=== PATIENT | female | born 1930 | race Caucasian/White ===

== ENCOUNTER 2017-03-17 13:19 | Inpatient (IN) | payer MEDICARE ==
[~2017-03-17] VITALS: Ht 162.6 cm; Wt 51.0 kg
[~2017-03-17 13:19] MED LIST changes: -AMOX-556 PO
[2017-03-17] MEDS ORDERED: NS(*) 0.9% 1000 ML BAG 1,000 ML IV ONE (13:23)
[2017-03-17] MEDS ORDERED: ONDANSETRON 4 MG/2 ML VIAL IVP ONE (13:25)
--- NOTE | 2017-03-17 13:26 | ER Report ---
History and Physical Time Seen By MD: 13:25 HPI/ROS CHIEF COMPLAINT: Vomiting diarrhea dehydration HISTORY OF PRESENT ILLNESS: 86 show female history of tongue CA status post resection has been having diarrhea and vomiting the last couple days since she vomited was last evening some mild distention of her abdomen patient states she feels very dehydrated and unable to hold fluids down and by mouth patient denies any chest pain shortness of breath fever chills or additional complaints REVIEW OF SYSTEMS: Respiratory: No cough, no dyspnea. Cardiovascular: No chest pain, no palpitations. Gastrointestinal: Vomiting diarrhea dehydration abdominal distention without pain Musculoskeletal: No back pain. Remainder of the 14 system rev: Yes Allergies: Coded Allergies: codeine (Verified Allergy, Unknown, 03/17/17) Home Meds Reported Medications Levothyroxine Sodium (Levoxyl) 125 Mcg Tablet, 125 MCG PO QDAY 05/11/11 Reviewed Nurses Notes: Yes Old Medical Records Reviewed: Yes Hx Smoking: No Smoking Status: Never Smoker Exposure to Second Hand Smoke?: No Hx Substance Use Disorder: No Hx Alcohol Use: No Constitutional Vital Sign - Last 24 Hours 03/17/17 03/17/17 03/17/17 03/17/17 13:19 13:24 13:30 13:34 Temp 98.1 Pulse ??? 80 77 Resp 36 18 21 B/P (MAP) 136/102 (113) 136/102 111/70 (84) Pulse Ox 92 93 O2 Delivery Room Air 03/17/17 03/17/17 03/17/17 03/17/17 13:39 13:54 14:00 14:09 Pulse 72 ? Resp 20 B/P (MAP) ???/??? (1665) Pulse Ox 90 03/17/17 03/17/17 03/17/17 03/17/17 14:24 14:30 14:42 14:54 Pulse 74 70 B/P (MAP) 108/54 (72) 108/52 (70) Pulse Ox 95 94 03/17/17 15:00 B/P (MAP) 111/51 (71) Intake and Output 03/17/17 03/17/17 03/18/17 15:00 23:00 07:00 Output Total 125 ml Balance -125 ml Physical Exam General Appearance: [The patient is alert, has no immediate need for airway protection and no current signs of toxicity.] Obvious tongue resection Eyes: Pupils equal and round no injection. Respiratory: Chest is non tender, lungs are clear to auscultation. Cardiac: regular rate and rhythm [ ] Gastrointestinal: Abdomen is soft mildly tender with mild distention hyperactive bowel sounds Musculoskeletal: Neck: Neck is supple and non tender. Extremities have full range of motion and are non tender. Skin: No rashes or lesions. Tenting of the skin lock of loss of turgor DIFFERENTIAL DIAGNOSIS: After history and physical exam differential diagnosis was considered for dehydration antritis gastroenteritis small bowel obstruction Medical Decision Making Data Points Result Diagram: 03/17/17 1313 03/17/17 1313 Laboratory Hematology Test 03/17/17 13:13 03/17/17 14:45 03/17/17 14:53 Red Blood Count 4.69 M/uL (4.17-5.56) Mean Corpuscular Volume 94.6 fL (80.0-96.0) Mean Corpuscular Hemoglobin 32.1 pg (26.0-33.0) Mean Corpuscular Hemoglobin Concent 33.9 g/dL (32.0-36.0) Red Cell Distribution Width 13.4 % (11.5-14.5) Mean Platelet Volume 9.9 fL (7.2-11.1) Neutrophils (%) (Auto) 90.5 % (39.4-72.5) Lymphocytes (%) (Auto) 4.5 % (17.6-49.6) Monocytes (%) (Auto) 4.6 % (4.1-12.4) Eosinophils (%) (Auto) 0.3 % (0.4-6.7) Basophils (%) (Auto) 0.1 % (0.3-1.4) Nucleated RBC Relative Count (auto) 0.0 /100WBC Neutrophils # (Auto) 14.8 K/uL (2.0-7.4) Lymphocytes # (Auto) 0.7 K/uL (1.3-3.6) Monocytes # (Auto) 0.8 K/uL (0.3-1.0) Eosinophils # (Auto) 0.0 K/uL (0.0-0.5) Basophils # (Auto) 0.0 K/uL (0.0-0.1) Nucleated RBC Absolute Count (auto) 0.00 K/uL Prothrombin Time 13.7 seconds (12.0-14.4) Prothromb Time International Ratio 1.04 Activated Partial Thromboplast Time 32 seconds (23-35) Sodium Level 136 mmol/L (137-145) Potassium Level 3.0 mmol/L (3.5-5.0) Chloride Level 101 mmol/L (98-107) Carbon Dioxide Level 22 mmol/L (22-31) Blood Urea Nitrogen 61 mg/dl (7-18) Creatinine 1.60 mg/dl (0.52-1.04) Glomerular Filtration Rate Calc 30.6 Random Glucose 122 mg/dl (75-110) Calcium Level 8.9 mg/dl (8.4-10.2) Total Bilirubin 0.9 mg/dl (0.2-1.3) Aspartate Amino Transf (AST/SGOT) 54 U/L (0-35) Alanine Aminotransferase (ALT/SGPT) 42 U/L (0-56) Alkaline Phosphatase 113 U/L (0-126) Total Protein 7.6 gm/dl (6.3-8.2) Albumin 3.9 g/dl (3.5-5.0) Lipase 73 U/L (23-300) Serum Alcohol < 10 mg/dl Stool Occult Blood (IFOB) Negative (NEGATIVE) Stool Leukocytes, Qualitative Positive Urine Color Yellow Urine Clarity Clear Urine pH 5.0 pH (4.8-9.5) Urine Specific Avery 1.019 Urine Protein Negative mg/dL (NEGATIVE) Urine Glucose (UA) Negative mg/dL (NEGATIVE) Urine Ketones Negative mg/dL (NEGATIVE) Urine Blood Negative (NEGATIVE) Urine Nitrite Negative (NEGATIVE) Urine Bilirubin Negative (NEGATIVE) Urine Urobilinogen Negative mg/dL (0.2-1.9) Urine Leukocyte Esterase Negative (NEGATIVE) Urine RBC <1 /HPF (0-2/HPF) Urine WBC 1 /HPF (0-5/HPF) Urine Squamous Epithelial Cells Few /LPF (NONE-FEW) Urine Bacteria Negative /HPF (NONE-FEW) Urine Hyaline Casts Few /LPF (NONE-FEW) Urine Granular Casts Few /LPF (NONE) Urine Mucus None /HPF (NONE-FEW) Chemistry Test 03/17/17 13:13 03/17/17 14:45 03/17/17 14:53 White Blood Count 16.4 k/uL (4.5-11.0) Red Blood Count 4.69 M/uL (4.17-5.56) Hemoglobin 15.0 g/dL (12.0-16.0) Hematocrit 44.4 % (34.0-47.0) Mean Corpuscular Volume 94.6 fL (80.0-96.0) Mean Corpuscular Hemoglobin 32.1 pg (26.0-33.0) Mean Corpuscular Hemoglobin Concent 33.9 g/dL (32.0-36.0) Red Cell Distribution Width 13.4 % (11.5-14.5) Platelet Count 199 K/uL (150-450) Mean Platelet Volume 9.9 fL (7.2-11.1) Neutrophils (%) (Auto) 90.5 % (39.4-72.5) Lymphocytes (%) (Auto) 4.5 % (17.6-49.6) Monocytes (%) (Auto) 4.6 % (4.1-12.4) Eosinophils (%) (Auto) 0.3 % (0.4-6.7) Basophils (%) (Auto) 0.1 % (0.3-1.4) Nucleated RBC Relative Count (auto) 0.0 /100WBC Neutrophils # (Auto) 14.8 K/uL (2.0-7.4) Lymphocytes # (Auto) 0.7 K/uL (1.3-3.6) Monocytes # (Auto) 0.8 K/uL (0.3-1.0) Eosinophils # (Auto) 0.0 K/uL (0.0-0.5) Basophils # (Auto) 0.0 K/uL (0.0-0.1) Nucleated RBC Absolute Count (auto) 0.00 K/uL Prothrombin Time 13.7 seconds (12.0-14.4) Prothromb Time International Ratio 1.04 Activated Partial Thromboplast Time 32 seconds (23-35) Glomerular Filtration Rate Calc 30.6 Calcium Level 8.9 mg/dl (8.4-10.2) Total Bilirubin 0.9 mg/dl (0.2-1.3) Aspartate Amino Transf (AST/SGOT) 54 U/L (0-35) Alanine Aminotransferase (ALT/SGPT) 42 U/L (0-56) Alkaline Phosphatase 113 U/L (0-126) Total Protein 7.6 gm/dl (6.3-8.2) Albumin 3.9 g/dl (3.5-5.0) Lipase 73 U/L (23-300) Serum Alcohol < 10 mg/dl Stool Occult Blood (IFOB) Negative (NEGATIVE) Stool Leukocytes, Qualitative Positive Urine Color Yellow Urine Clarity Clear Urine pH 5.0 pH (4.8-9.5) Urine Specific Avery 1.019 Urine Protein Negative mg/dL (NEGATIVE) Urine Glucose (UA) Negative mg/dL (NEGATIVE) Urine Ketones Negative mg/dL (NEGATIVE) Urine Blood Negative (NEGATIVE) Urine Nitrite Negative (NEGATIVE) Urine Bilirubin Negative (NEGATIVE) Urine Urobilinogen Negative mg/dL (0.2-1.9) Urine Leukocyte Esterase Negative (NEGATIVE) Urine RBC <1 /HPF (0-2/HPF) Urine WBC 1 /HPF (0-5/HPF) Urine Squamous Epithelial Cells Few /LPF (NONE-FEW) Urine Bacteria Negative /HPF (NONE-FEW) Urine Hyaline Casts Few /LPF (NONE-FEW) Urine Granular Casts Few /LPF (NONE) Urine Mucus None /HPF (NONE-FEW) Coagulation Test 03/17/17 13:13 Prothrombin Time 13.7 seconds Prothromb Time International Ratio 1.04 Activated Partial Thromboplast Time 32 seconds Toxicology Test 03/17/17 13:13 Serum Alcohol < 10 mg/dl Urinalysis Test 03/17/17 14:53 Urine Color Yellow Urine Clarity Clear Urine pH 5.0 pH (4.8-9.5) Urine Specific Avery 1.019 Urine Protein Negative mg/dL (NEGATIVE) Urine Glucose (UA) Negative mg/dL (NEGATIVE) Urine Ketones Negative mg/dL (NEGATIVE) Urine Blood Negative (NEGATIVE) Urine Nitrite Negative (NEGATIVE) Urine Bilirubin Negative (NEGATIVE) Urine Urobilinogen Negative mg/dL (0.2-1.9) Urine Leukocyte Esterase Negative (NEGATIVE) Urine RBC <1 /HPF (0-2/HPF) Urine WBC 1 /HPF (0-5/HPF) Urine Squamous Epithelial Cells Few /LPF (NONE-FEW) Urine Bacteria Negative /HPF (NONE-FEW) Urine Hyaline Casts Few /LPF (NONE-FEW) Urine Granular Casts Few /LPF (NONE) Urine Mucus None /HPF (NONE-FEW) Microbiology Microbiology Date/Time Source Procedure Growth Status 03/17/17 14:45 Stool Gram Stain - Final Resulted 03/17/17 14:45 Stool Stool Culture Pending Resulted ED Course/Re-evaluation ED Course ED clinical course medical decision making a 6-year-old female who presented with gastric distention nausea vomiting and dehydration CT scan doesn't demonstrate a clear and obvious ileus with no transition point indicating small bowel with mild to moderate distention of the cecum and ascending colon also shows infiltrative changes in both the middle left and inferior lingual lobes this was treated with antibiotics patient be admitted for dehydration and pneumonia with surgical consult Decision to Disposition Date: Mar 17, 2017 Decision to Disposition Time: 14:57 Depart Departure Latest Vital Signs Vital Signs Date Time Temp Pulse Resp B/P (MAP) Pulse Ox O2 Delivery O2 Flow Rate FiO2 03/17/17 15:00 111/51 (71) 03/17/17 14:54 70 94 03/17/17 13:39 20 03/17/17 13:24 98.1 Room Air Impression: Primary Impression: Ileus Condition: Improved Disposition: Admitted from ER Referrals: BOOKER ZAMAN MD (PCP) GIOVANY PERLA MD Mar 17, 2017 13:26
[2017-03-17 13:34] LABS: PLATELET COUNT, AUTOMATED 199 K/uL (150-450)
[2017-03-17 13:39] LABS: INR 1.04
[2017-03-17] MEDS ORDERED: IOPAMIDOL 76% 75 ML INFUS BTL 0 ML ONE (13:43)
[2017-03-17] MEDS ORDERED: NS 0.9% 50 ML VIAL 0 ML ONE (13:43)
--- NOTE | 2017-03-17 14:11 | RADIOLOGY IMAGING REPORT ---
FACILITY: [facility] - [place] PATIENT NAME: Deny Mckenzie : 1930 MR: [id number] V: [id number] EXAM DATE: ORDERING PHYSICIAN: GIOVANY PERLA TECHNOLOGIST: [facility] Patient: Deny Mckenzie : 1930 Visit/Account:[id number] Date of Sevice: 03/17/2017 Exam type: CHEST PA AND LAT History: Pain Comparison: July 31, 2016. Findings: The lungs are free of acute effusions, infiltrates or edema. There is no evidence of a pneumothorax or pneumomediastinum. The cardiac silhouette is normal in size. There are postsurgical changes from a left mastectomy. There is an S-shaped scoliosis of the thoracolumbar spine IMPRESSION: 1. No acute heart pulmonary process is seen Report Dictated By: Yumi Lozano MD at 03/17/2017 2:06 PM Report E-Signed By: Yumi Lozano MD at 03/17/2017 2:07 PM WSN:IRIS
--- NOTE | 2017-03-17 14:40 | RADIOLOGY IMAGING REPORT ---
FACILITY: [facility] - [place] PATIENT NAME: Deny Mckenzie : 1930 MR: [id number] V: [id number] EXAM DATE: ORDERING PHYSICIAN: GIOVANY PERLA TECHNOLOGIST: Location: [facility] [place] Patient: Deny Mckenzie : 1930 Visit/Account:[id number] Date of Sevice: 03/17/2017 ABDOMEN/PELVIS W/O CONTRAST HISTORY: Vomiting and diarrhea since Wednesday night, rule out SBO TECHNIQUE: Axial images acquired through the abdomen/pelvis. Coronal and sagittal reformatting also performed. No IV contrast administered. Dose Lowering Technique One of the following dose optimization techniques was utilized in the performance of this exam: Autom ated exposure control; adjustment of the mA and/or kV according to the patient's size; or use of an i terative reconstruction technique. Specific details can be referenced in the facility's radiology C T exam operational policy. COMPARISON: December 27, 2013 FINDINGS: Visualized lung bases: There are focal patchy areas of airspace consolidation in the inferomedial rig ht middle lobe inferolateral left lower lobe and inferior lingula not present previously. There Is a 5 mm noncalcified nodule in the right lower lobe 4 mm nodule inferior right middle lobe a nd additional 5 mm nodule posterior right lower lobe although appears stable when compared to the damien or study Hepatobiliary: The gallbladder is not identified and is presumably removed. Spleen: Negative. Adrenals: Negative. Pancreas: Pancreas is severely atrophic Kidneys ureters and bladder: Negative. Genitalia: Uterus is not identified GI: The stomach is moderately distended with fluid and particulate material. Several loops of minim ally prominent fluid-filled small bowel in the upper abdomen. The distal small bowel is decompressed . The cecum is markedly distended with fluid and particulate material and measures approximately 8.1 cm in diameter. The ascending colon is moderately distended with fluid measuring up to 4.7 cm in di ameter there is moderate gaseous distention of the transverse colon. Left-sided colon does not appea r distended. A transitional point is not seen Vessels/spaces/nodes: There are moderate vascular calcifications throughout the abdomen and pelvis. Bones/soft tissues: There is a levoconvex scoliosis of the lumbar spine with spondylotic changes. T here are mild to moderate degenerative changes of both hip joints Additional findings: None pertinent. IMPRESSION: The cecum is markedly distended with fluid measuring up to 8.1 cm in diameter. Descending colon is m oderately distended with fluid measuring up to 4.7 cm in diameter. Also noted is moderate gaseous di stention of the colon although the left-sided colon does not appear distended. A definite transition al point is not seen. The stomach is moderately distended with fluid and particulate material and there are several loops o f minimally prominent fluid-filled small bowel in the upper abdomen. This does not appear to represe nt a small bowel obstruction. Changes could possibly be related to an ileus however clinical correla tion needed (correlation with presence or absence of bowel sounds) There are patchy areas of airspace consolidation in the inferomedial right middle lobe, inferolateral left lower lobe and inferior lingula which may represent atelectasis or an acute infectious/inflamma tory process. Report Dictated By: Yumi Lozano MD at 03/17/2017 2:19 PM Report E-Signed By: Yumi Lozano MD at 03/17/2017 2:36 PM ARMIDAN:IRIS
[2017-03-17] MEDS ORDERED: PIPERACILLIN/TAZO*3.375GM VIAL 3.375 GM in NS(*) 0.9% 100 ML ADDVANT BAG 100 ML IVPB ONE (14:45)
--- NOTE | 2017-03-17 16:23 | RADIOLOGY IMAGING REPORT ---
FACILITY: [facility] - [place] PATIENT NAME: Deny Mckenzie : 1930 MR: [id number] V: [id number] EXAM DATE: ORDERING PHYSICIAN: GIOVANY PERLA TECHNOLOGIST: Location: [facility] Patient: Deny Mckenzie : 1930 Visit/Account:[id number] Date of Sevice: 03/17/2017 CHEST W/O CONTRAST History: possible infiltrate TECHNIQUE: Contiguous axial images were performed through the chest to the level of the adrenal gla nds. No IV contrast was administered. Coronal and sagittal reformatting was also performed. Dose Lowe ring Technique One of the following dose optimization techniques was utilized in the performance of this exam: Autom ated exposure control; adjustment of the mA and/or kV according to the patient's size; or use of an i terative reconstruction technique. Specific details can be referenced in the facility's radiology C T exam operational policy. COMPARISON STUDIES: CTA chest July 31, 2016. Lungs / Pleura: Mild biapical pleural parenchymal scarring remains unchanged.. Previously noted 4 mm noncalcified pulmonary nodule right middle lobe has remained stable best seen on image 51.. 4 mm noncalcified pulmonary nodule right middle lobe best seen on image 56 also remains stable. 3 mm nonc alcified right middle lobe pulmonary nodule best seen on image 71 is also remained stable 5 mm pulmonary nodule inferior aspect right lower lobe best seen on image 73 is also remained stable. The 2-3 mm noncalcified pulmonary nodules anterior aspect of the right lower lobe best seen on imag es 56 and 57 are relatively unchanged when allowing for the patient motion on the prior study There is now patchy airspace consolidation in the inferior medial right middle lobe, medial right low er lobe, inferior lingula and posterior lateral left lower lobe which may represent atelectasis and o r infiltrates Mediastinum/nodes: Mediastinal structures not ideally evaluated due to lack of intravenous contrast although no gross evidence of pathologic-appearing mediastinal adenopathy Heart and vessels: The coronary artery vascular calcifications and calcination occasions at the aort ic root Musculoskeletal / Body wall: Spondylotic changes of the thoracic spine. There are postsurgical lucy nges from a left mastectomy Upper abdomen: Visualized abdominal viscera negative. IMPRESSION: There are multiple bilateral pulmonary nodules measuring up to 5 mm all appear stable when compared t o the prior study For multiple nodules measuring less than 6 mm, in a low risk patient (minimal or ab sent smoking history, no history of malignancy), no routine followup is recommended. In a high risk p atient (smoking or malignancy history), optional 12 month followup can be obtained. There is now patchy airspace consolidation in the inferior medial right middle lobe, medial right low er lobe, inferior lingula and posterior lateral left lower lobe which may represent areas of atelecta sis and or infiltrate. Short-term interval follow-up recommended Report Dictated By: Yumi Lozano MD at 03/17/2017 4:01 PM Report E-Signed By: Yumi Lozano MD at 03/17/2017 4:18 PM ARMIDAN:IRIS
[2017-03-17 16:52] VITALS: BP 119/38
--- NOTE | 2017-03-17 17:15 | History & Physical ---
History of Present Illness Chief Complaint Weak History of Present Illness 86yo female with PMHx significant for tongue cancer s/p glossectomy, breast cancer s/p left mastectomy, hypothyroidism. She reports onset of nausea with vomiting 3 days ago. She has not been able to keep much of her dietary supplement (Resource) down during this time. She has had some loose stools as well. She has noted some coughing spells on occasion. No obvious fevers or chills. Some abdominal discomfort at times. No urinary symptoms. She was evaluated in the ER and found to be dehydrated with some acute renal insufficiency as well as possible ileus and right-sided pneumonia. She was recommended for admission. 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 Hx Smoking: No Smoking Status: Never Smoker Exposure to Second Hand Smoke?: No Hx Alcohol Use: No Hx Substance Use Disorder: No Review of Systems Constitutional: No Fever, No Chills, No Night Sweats Neurological: Weakness, No Syncope Eyes: No Vision Change, No Loss of Vision Cardiovascular: No Chest Pain, No Palpitations Respiratory: Shortness of Breath, Cough Gastrointestinal: Nausea, Vomiting, Diarrhea, No Hematemesis, No Hematochezia, No Melena, Abdominal Pain Genitourinary: No Dysuria, No Hematuria Exam Vital Signs Vital Signs Date Time Temp Pulse Resp B/P (MAP) Pulse Ox O2 Delivery O2 Flow Rate FiO2 03/17/17 16:52 92 03/17/17 16:52 98.3 74 16 119/38 (65) Room Air General Appearance: Alert, Awake Eyes: PERRLA ENT: Other (s/p glossectomy) Neck: Other (skin is tight/radiation type changes/no obvious masses noted) Cardiovascular: No Edema, Other (Regular no obvious murmur) Respiratory: Other (Rales and scattered rhonchi right mid-base/left is fairly clear) Chest: No Tenderness, Other (s/p left mastectomy) GI: Abd Soft and Non-Tender (Healed surgical scars and LUQ PEG tube scar) : No CVA Tenderness Extremities: Warm, Perfused Integumentary: Other (skin graft harvest site left forearm) Psych: Alert & Oriented X3 Medical Decision Making Data Points Result Diagram: 03/17/17 1313 03/17/17 1313 Assessment and Plan Problems: (1) Pneumonia Status: Acute Assessment & Plan: It appears she has the right-sided pneumonia. Would have to be concerned it may be an aspiration pneumonia. Will place on IV Zosyn and Levaquin. Will adjust dose for renal function. Cultures of blood have been obtained. Will have Speech/Swallowing see her. We did discuss feeding tube placement if needed and she stated she did not want to pursue it. (2) Ileus Status: Acute Assessment & Plan: CT scan shows possible ileus/obstruction. Will discuss with Dr. Gragner regarding further evaluation/treatment. 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 She has been taking her nutrition via supplement three times a day, but sounds like she could potentially be aspirating. Will have ST see. (4) Acute renal failure Status: Acute Assessment & Plan: Most likely due to dehydration/poor intake. Will give generous IV fluids. Watch labs/UOP/Ins and outs. Venous Thromboembolism Antithrombotics Is Pt On Any Antithrombotics?: Yes Exam Sepsis Risk: No Definite Risk YOEL ENRIQUEZ MD Mar 17, 2017 17:15
[2017-03-17] MEDS ORDERED: PIPERACILLIN/TAZO SOD* 2.25 GM 2.25 GM in NS(*) 0.9% 100 ML ADDVANT BAG 100 ML IVPB SCH (18:00)
--- NOTE | 2017-03-17 18:52 | General Surgery Consultation ---
History of Present Illness Requesting Physician dr hoffman Reason for Consult colon dilatation Chief Complaint nausea and vomiting History of Present Illness 86 yo female with a glossectomy who developed chest pain and shortness of breath. she has had a 2 day history of nausea and vomiting and left upper quadrant pain. she has had diarrhea. last week her bowels were working normally. she had a colonoscopy that was normal 2 years ago. she was seen in ed. ct of chest suggests pneumonia. ct of abdomen reveals dilated stomach, small bowel, and colon. the cecum is 8 cm and full of stool. the left colon is decompressed but no transition point identified. History Unable To Obtain Past Medical: tonsillectomy, appendectomy, cholecystectomy, left mastectomy, hysterectomy, glossectomy. colonoscopy Problems: Home Meds Reported Medications Levothyroxine Sodium (Levoxyl) 125 Mcg Tablet, 125 MCG PO QDAY 05/11/11 Allergies: Coded Allergies: codeine (Verified Allergy, Unknown, 03/17/17) Exam Vital Signs Vital Signs Date Time Temp Pulse Resp B/P (MAP) Pulse Ox O2 Delivery O2 Flow Rate FiO2 03/17/17 16:52 92 03/17/17 16:52 98.3 74 16 119/38 (65) Room Air General Appearance: Alert, Awake, No Acute Distress GI: Abd Soft and Non-Tender (she is not dread distended. i can palpate quite deeply without pain.) Medical Decision Making Data Points Result Diagram: 03/17/17 1313 03/17/17 1313 Assessment and Plan Problems: (1) Abdominal pain Assessment & Plan: most likely has an ileus. will do a gastrograffin enema in the am to determine if an obstruction exists. Copies to: ANAID STEWART MD Venous Thromboembolism Antithrombotics Is Pt On Any Antithrombotics?: Yes ANAID STEWART MD Mar 17, 2017 18:52
[2017-03-17 19:24] VITALS: BP 100/49
[2017-03-17] MEDS ORDERED: LEVOFLOXACIN/D5W*500 MG/100 ML 100 ML IVPB ONE (19:30)
[2017-03-17 23:02] VITALS: BP 110/48
[2017-03-18] MEDS: PIPERACILLIN/TAZO SOD* 2.25 GM 2.25 GM in NS(*) 0.9% 100 ML ADDVANT BAG 100 ML IVPB SCH ×2 (00:18→06:11)
[2017-03-18 03:03] VITALS: BP 101/44
--- NOTE | 2017-03-18 05:53 | General Surgery Progress Note ---
Subjective Progress Notes Subjective no complaints of abdominal pain or nausea, slept ok Physical Exam Vital Signs Date Time Temp Pulse Resp B/P (MAP) Pulse Ox O2 Delivery O2 Flow Rate FiO2 03/18/17 03:03 97.6 68 16 101/44 (63) 91 Room Air General Appearance: Alert, Awake, No Acute Distress GI: Soft and Non-Tender (had bm) Result Diagram: 03/17/17 1313 03/17/17 1313 Assessment and Plan Problems: (1) Abdominal pain Assessment & Plan: most likely has an ileus. will do a gastrograffin enema in the am to determine if an obstruction exists. 03/18/17 gastrograffin enema today to evaluate colon Exam Sepsis Risk: No Definite Risk ANAID STEWART MD Mar 18, 2017 05:53
[2017-03-18] MEDS: LEVOTHYROXINE SOD 0.125 MG TAB PO SCH (06:00)
[2017-03-18 06:15] LABS: PLATELET COUNT, AUTOMATED 145 K/uL (150-450)
[2017-03-18] MEDS: ENOXAPARIN 40 MG/0.4ML SYR SC SCH (08:50)
[2017-03-18] MEDS ORDERED: KCL/NS* 20 MEQ/1000 ML PREMIX 1,000 ML IV PRN (10:45)
[2017-03-18 10:50] VITALS: Ht 162.6 cm; Wt 51.0 kg
[2017-03-18 11:15] VITALS: BP 111/50
[2017-03-18] MEDS ORDERED: DIATRIZOATE MEGL/DIATRIZOA SOD 120 ML SOLN PO ONE ×2 (13:37→13:43)
[2017-03-18] MEDS ORDERED: DIATRIZOATE MEGL/DIATRIZOA SOD 367 MG/ML SOLN ONE (13:41)
[2017-03-18] MEDS: AMPICILLIN/SULBACT (*) 3 GM VL 3 GM in NS(*) 0.9% 100 ML BAG 100 ML IVPB SCH ×2 (15:26→21:16)
[2017-03-18 15:29] VITALS: BP 130/52
[2017-03-18] MEDS ORDERED: KCL/NS* 20 MEQ/1000 ML PREMIX 1,000 ML IV SCH (16:52)
--- NOTE | 2017-03-18 16:54 | General Surgery Progress Note ---
Subjective Progress Notes Subjective no pain, hungry Physical Exam Vital Signs Date Time Temp Pulse Resp B/P (MAP) Pulse Ox O2 Delivery O2 Flow Rate FiO2 03/18/17 15:29 97.5 63 16 130/52 (78) 94 Room Air Intake and Output 03/19/17 07:00 # Voids 1 # Bowel Movements 1 GI: Other (multiple bms) Result Diagram: 03/18/17 0541 03/18/17 0541 Assessment and Plan Problems: (1) Abdominal pain Assessment & Plan: most likely has an ileus. will do a gastrograffin enema in the am to determine if an obstruction exists. 03/18/17 gastrograffin enema today to evaluate colon 03/18/17 enema reveals no obstruction. resume diet. Exam Sepsis Risk: No Definite Risk ANAID STEWART MD Mar 18, 2017 16:54
--- NOTE | 2017-03-18 16:55 | RADIOLOGY IMAGING REPORT ---
FACILITY: [facility] PATIENT NAME: Deny Mckenzie : 1930 MR: [id number] V: [id number] EXAM DATE: ORDERING PHYSICIAN: ANAID STEWART TECHNOLOGIST: Location: Patient: Deny Mckenzie : 1930 Visit/Account:[id number] Date of Sevice: 03/18/2017 Exam type: BARIUM ENEMA (BE) History: evaluate for colon obstruction Comparison: CT March 17, 2017. Findings: Gastrografin was instilled into the colon via the rectum in usual retrograde fashion. There is moder ate distention of the right-sided colon and cecum although the contrast did freely enter the terminal ileum without evidence of obstruction. No annular lesions were identified within the colon. No dem onstration of diverticulosis.. The fluoroscopy dose area product was 980.13 micro-Davis per meter squ ared IMPRESSION: 1. Gastrografin flowed freely to the level of the cecum with reflux into the terminal ileum. No kwan dence of obstruction demonstrated. The right-sided colon and cecum was moderately distended. Change s could be related to an ileus Report Dictated By: Yumi Lozano MD at 03/18/2017 4:49 PM Report E-Signed By: Yumi Lozano MD at 03/18/2017 4:52 PM WSN:IRIS
--- NOTE | 2017-03-18 17:24 | Hospitalist Progress Note ---
Subjective Progress Notes Subjective The patient feels better after passing a large amount of liquid stool. Physical Exam Vital Signs Date Time Temp Pulse Resp B/P (MAP) Pulse Ox O2 Delivery O2 Flow Rate FiO2 03/18/17 17:10 94 03/18/17 15:29 97.5 63 16 130/52 (78) Room Air Intake and Output 03/19/17 07:00 # Voids 1 # Bowel Movements 1 General Appearance: Alert, Awake, No Acute Distress, Afebrile Neuro: No Gross deficits ENT: Other (The patient is missing most of her tongue.) Cardiovascular: Regular Rate and Rhythm Respiratory: No Respiratory Distress Result Diagram: 03/18/17 0541 03/18/1741 Assessment and Plan Problems: (1) Pneumonia Status: Acute Assessment & Plan: It appears she has the right-sided pneumonia by CT. Would have to be concerned it may be an aspiration pneumonia. Will place on IV Zosyn and Levaquin. Will adjust dose for renal function. Cultures of blood have been obtained. Will have Speech/Swallowing see her. We did discuss feeding tube placement if needed and she stated she did not want to pursue it. (2) Ileus Status: Acute Assessment & Plan: CT scan shows possible ileus/obstruction.Gastrografin enema shows possible ileus. Dr. Granger following. 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 She has been taking her nutrition via supplement three times a day, but sounds like she could potentially be aspirating. Will have ST see. (4) Acute renal failure Status: Acute Assessment & Plan: Most likely due to dehydration/poor intake. Giving generous IV fluids. Watch labs/UOP/Ins and outs. Creatinine improved today to 1.1. (5) Hypokalemia Status: Acute Assessment & Plan: Improved with replacement in her IV fluids. Time Spent on Plan of Care: < 30 min Exam Sepsis Risk: No Definite Risk YAMILA ENRIQUEZ MD Mar 18, 2017 17:24
[2017-03-18] MEDS ORDERED: LEVOTHYROXINE SOD 0.125 MG TAB PO ONE (17:30)
[2017-03-18 19:24] VITALS: BP 115/50
[2017-03-18] MEDS ORDERED: LEVOFLOXACIN/D5W 250 MG/50 ML 50 ML IVPB SCH (20:00)
[2017-03-18 23:20] VITALS: BP 111/44
[2017-03-19] MEDS: AMPICILLIN/SULBACT (*) 3 GM VL 3 GM in NS(*) 0.9% 100 ML BAG 100 ML IVPB SCH ×2 (02:24→08:56)
[2017-03-19 02:25] VITALS: BP 111/48
[2017-03-19] MEDS: LEVOTHYROXINE SOD 0.125 MG TAB PO SCH (05:49)
[2017-03-19 06:21] LABS: PLATELET COUNT, AUTOMATED 159 K/uL (150-450)
[2017-03-19] MEDS: ENOXAPARIN 40 MG/0.4ML SYR SC SCH (08:57)
[2017-03-19] MEDS ORDERED: AMOX-556 PO (10:04)
--- NOTE | 2017-03-19 10:11 | Hospitalist Depart ---
Discharge Summary Reason for Hosp/Final Diag: (1) Bacterial pneumonia Hospital Course & Plan: A CT scan of the chest did show infiltrates in the right lung, and it was suspected that she aspirated. She was placed on empiric treatment with Unasyn. Her WBC was initially elevated, but quickly improved. We have converted her to oral Augmentin. (2) Ileus Status: Acute Hospital Course & Plan: There was initial concern that she may have had a bowel obstruction. Her CT scan showed findings consistent with obstruction vs. ileus. A barium enema was then ordered, and was negative for obstruction. She has since had bowel movements and is tolerating a diet. (3) Acute renal failure Status: Acute Hospital Course & Plan: Resolved with IV fluids. (4) Hypokalemia Status: Acute Hospital Course & Plan: Resolved with supplementation. (5) Pulmonary nodules Hospital Course & Plan: Bilateral pulmonary nodules were noted on her CT scan. The patient states that she is aware of these from previous studies. 12 month follow up was recommended. Departure Latest Vital Signs Laboratory Tests Test 03/19/17 05:43 White Blood Count 7.9 k/uL Red Blood Count 3.65 M/uL Hemoglobin 12.0 g/dL Hematocrit 34.5 % Mean Corpuscular Volume 94.6 fL Mean Corpuscular Hemoglobin 33.0 pg Mean Corpuscular Hemoglobin Concent 34.9 g/dL Red Cell Distribution Width 13.0 % Platelet Count 159 K/uL Mean Platelet Volume 9.9 fL Neutrophils (%) (Auto) 79.5 % Lymphocytes (%) (Auto) 10.7 % Monocytes (%) (Auto) 9.3 % Eosinophils (%) (Auto) 0.3 % Basophils (%) (Auto) 0.2 % Nucleated RBC Relative Count (auto) 0.0 /100WBC Neutrophils # (Auto) 6.3 K/uL Lymphocytes # (Auto) 0.8 K/uL Monocytes # (Auto) 0.7 K/uL Eosinophils # (Auto) 0.0 K/uL Basophils # (Auto) 0.0 K/uL Nucleated RBC Absolute Count (auto) 0.00 K/uL Sodium Level 145 mmol/L Potassium Level 3.4 mmol/L Chloride Level 119 mmol/L Carbon Dioxide Level 20 mmol/L Blood Urea Nitrogen 25 mg/dl Creatinine 1.00 mg/dl Glomerular Filtration Rate Calc 52.6 Random Glucose 80 mg/dl Calcium Level 7.7 mg/dl Current Medications Medications (Trade) Dose Ordered Sig/Maximino Route PRN Reason Start Time Stop Time Status Last Admin Dose Admin Sodium Chloride 1,000 ml @ 0 mls/hr Q0M ONCE IV 03/17/17 13:23 03/17/17 13:24 DC 03/17/17 13:23 Ondansetron HCl (Zofran(*) 4 Mg/ 2 ml(Or Equiv)) 4 mg ONCE ONCE IVP 03/17/17 13:25 03/17/17 13:26 DC Iopamidol 0 ml @ As Directed STK-MED ONCE .ROUTE 03/17/17 13:43 03/17/17 13:44 DC Sodium Chloride 0 ml @ As Directed STK-MED ONCE .ROUTE 03/17/17 13:43 03/17/17 13:44 DC Piperacillin Sod/ Tazobactam Sod 3.375 gm/Sodium Chloride 100 ml @ 200 mls/hr ONCE ONCE IVPB 03/17/17 14:45 03/18/17 10:25 DC 03/17/17 16:20 Potassium Chloride/Sodium Chloride 1,000 ml @ 80 mls/hr 1652 IV 03/18/17 16:52 03/18/17 16:52 DC 03/18/17 09:51 Influenza Virus Vaccine (Flu Vac (7751-6959 Formula)) 0.5 ml ONCE ONCE IM ONLY 03/20/17 09:00 03/20/17 09:01 Enoxaparin Sodium (Lovenox 40 Mg/ 0.4 ml Syr (Or Equiv)) 40 mg Q24H SC 03/18/17 09:00 04/17/17 08:59 03/19/17 08:57 Levothyroxine Sodium (Synthroid 0.125 Mg Tab (Or Equiv)) 0.125 mg QDAY@0600 PO 03/18/17 06:00 04/17/17 05:59 03/19/17 05:49 Piperacillin Sod/ Tazobactam Sod 2.25 gm/Sodium Chloride 100 ml @ 200 mls/hr Q6H IVPB 03/17/17 18:00 03/17/17 18:00 DC Levofloxacin/ Dextrose 100 ml @ 100 mls/hr ONCE ONCE IVPB 03/17/17 19:30 03/17/17 20:29 DC 03/17/17 19:30 Levofloxacin/ Dextrose 50 ml @ 50 mls/hr QDAY@2000 IVPB 03/18/17 20:00 04/01/17 19:59 03/18/17 19:28 Piperacillin Sod/ Tazobactam Sod 2.25 gm/Sodium Chloride 100 ml @ 200 mls/hr Q6H IVPB 03/18/17 00:00 03/18/17 10:36 DC 03/18/17 06:11 Ampicillin Sodium/ Sulbactam Sodium 3 gm/Sodium Chloride 100 ml @ 200 mls/hr 0300,0900,1500,2100 IVPB 03/18/17 15:00 04/01/17 14:59 03/19/17 08:56 Potassium Chloride/Sodium Chloride 1,000 ml @ 80 mls/hr [id number] PRN IV RUN CONTINUOUSLY FOR HYDRATION 03/18/17 10:45 04/17/17 10:44 03/19/17 02:21 Diatrizoate Meglum/ Diatrizoate Sod (LuzGastroview 66%-10% Soln) 240 ml STK-MED ONCE PO 03/18/17 13:37 03/18/17 13:38 DC Diatrizoate Meglum/ Diatrizoate Sod (Gastroview 30 ml) 88,080 mg STK-MED ONCE .ROUTE 03/18/17 13:41 03/18/17 13:42 DC Diatrizoate Meglum/ Diatrizoate Sod (LuzGastroview 66%-10% Soln) 240 ml STK-MED ONCE PO 03/18/17 13:43 03/18/17 13:44 DC Levothyroxine Sodium (Synthroid 0.125 Mg Tab (Or Equiv)) 0.125 mg ONCE ONCE PO 03/18/17 17:30 03/18/17 17:34 DC 03/18/17 17:38 Weight (Pounds): 112 Weight (Ounces): 7.0 Result Diagram: 03/19/17 0543 03/19/1743 Condition: Improved Discharge: Home, Home Health PT/OT Follow Up For: PT For Strengthening Home Health RN Follow Up For: Medication Management Home Health BRIDGE/[employer]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 Electronic Undersigning Physician Certifies Home Health. I certify that the patient has been under my care and that I had a [id number] encounter that meets the physician [id number] encounter requirements with this patient. This patient is home-bound due to safety issues and continues to require assistance with ADL's. I certify that based on my findings, that Nursing, Aides and the following Home Health services are medically necessary: Medical Necessity: Nursing, Rehab Date Face to Face Conducted: Mar 19, 2017 BOOKER UBCIO DO Mar 19, 2017 10:11
[2017-03-19 11:02] VITALS: BP 114/52
--- NOTE | 2017-03-19 19:14 | SWALLOW EVALUATION ---
SPEECH THERAPY injection molding machine tender: Mary Alice Godoy MS, CCC-INDUSTRIAL TECHNOLOGY TEACHER, Aida Vogt, BART Type of Assessment: Dysphagia Evaluation Patient: Deny Mckenzie : 1930, 86yrs Evaluation Date: 03/19/2017 BACKGROUND The patient is an 86 year old female who [facility] . She was referred for a clinical swallow evaluation secondary to her current pneumonia. Patient complaints include: 1.Coughing up liquids from airway post swallow 2.Difficulty orally passing thickened liquids, pt reports adding water to thickened drinks The patients medical hx is consistent with pneumonia and squamous cell cancer of the tongue. The patient reports having her tongue removed in 2002. PREVIOUS LEVEL OF FUNCTION: Primary Medical Diagnosis: Pneumonia Prior Hospitalization: 07/31/2016 for chest pain Prior Level of Function: Lives at home with her son Medical Complications/Past Medical History: See chart for additional details Pain Scale (0-10): 0 LOC / Participation: alert and cooperative Follows instructions: yes Orientation: oriented to person, place, time, situation Functional Communication Deficits impact swallow function/safety, or response to therapy: Yes ORAL MOTOR Limited lip ROM. Teeth and tongue were absent from the oral cavity. VOICE Vocal Deficits: No DYSPHAGIA ASSESSMENT SUMMARY No trials completed during this evaluation. Patient and son were present in the room. Patient reports that her feeding tube had fallen out and now she is on thickened liquids only. The patient expressed that she experiences difficulty passing thickened liquids and reported that she adds water to them. She also reported that a typical swallow involves tipping her head back to pass the bolus and coughing up part of the bolus after each swallow. RECOMMENDATIONS It is recommended that the patient complete a modified barium swallow study (MBS ) as outpatient to assess the efficiency, integrity, and safety of swallow structures and functions. Thank you for this referral. Mary Alice Godoy M.S., AVNI-INDUSTRIAL TECHNOLOGY TEACHER Speech Therapist Thank you for this referral. Please call [phone] Mary Alice Godoy M.S., AVNI-INDUSTRIAL TECHNOLOGY TEACHER, Aida Vogt, BART Physician Signature Date MTDD
[2017-03-20] MEDS ORDERED: INFLUENZA VIRUS VAC 0.5 ML SYR IM ONLY ONE (09:00)
== END 2017-03-19 11:50 | disposition home health service (06) | DRG 178 ==
LOC: ER 13:25 → MED 15:01
PROVIDERS: ADMIT Internal Medicine; ATTEND Internal Medicine
DX: J69.0 Pneumonitis due to inhalation of food and vomit (principal); K56.7 Ileus, unspecified; N17.9 Acute kidney failure, unspecified; E87.6 Hypokalemia; R91.8 Other nonspecific abnormal finding of lung field; E03.9 Hypothyroidism, unspecified; J15.9 Unspecified bacterial pneumonia; F32.9 Major depressive disorder, single episode, unspecified; E86.0 Dehydration; Z85.810 Personal history of malignant neoplasm of tongue; Z92.3 Personal history of irradiation; Z85.3 Personal history of malignant neoplasm of breast; Z90.12 Acquired absence of left breast and nipple; Z90.49 Acquired absence of other specified parts of digestive tract; Z90.710 Acquired absence of both cervix and uterus; Z88.8 Allergy status to other drugs, medicaments and biological substances
CPT/HCPCS: 36415; 71046; 71250; 74176; 74270; 80320; 81001; 82040; 82247; 82274; 82310; 82374; 82435; 82565; 82947; 83630; 83690; 84075; 84132; 84155; 84295; 84450; 84460; 84520; 85025; 85610; 85730; 87040; 87045; 87205; 96361; 96374; 97161; 97162; 97165; 99285; J0295; J1650; J1956; J2543; J3480; J7030; J7050; Q9967

== ENCOUNTER → 2017-03-17 | Outpatient (CLI) | payer MEDICARE ==
[~2017-03-17] MED LIST: ACE325 PO; ACEEL PO; AMOX-556 PO; CALC200 PO; CALC625T57 PO; CALC625T8 PO; CIT20 PO; DOCU-416 PO; DOCU50CA8 PO; ERG400 PO; FISH OIL1 CAP PO; LEVO-210 PO; LEVO750T23 PO; LINA145C PO; METO50TA PO; MOM PO; POLY17PO21 PO
[2017-03-18 10:50] VITALS: BMI 19.2
== END ==
LOC: AMB 12:55
PROVIDERS: ATTEND Nurse Practitioner
DX: R19.7 Diarrhea, unspecified (principal); R11.10 Vomiting, unspecified; E86.0 Dehydration
CPT/HCPCS: A0425; A0427

== ENCOUNTER → 2018-06-21 | Outpatient (CLI) | payer MEDICARE ==
[2017-03-18 10:50] VITALS: BMI 19.2
[~2018-06-21] MED LIST changes: +AMOX-556 PO; +POLY17PO11 PO; -POLY17PO21 PO
--- NOTE | 2018-06-21 16:28 | RADIOLOGY IMAGING REPORT ---
FACILITY: [facility] PATIENT NAME: Deny Mckenzie : 1930 MR: [id number] V: [id number] EXAM DATE: ORDERING PHYSICIAN: INES TAN TECHNOLOGIST: Location: [facility] Patient: Deny Mckenzie : 1930 Visit/Account:[id number] Date of Sevice: 06/21/2018 FOOT 2 VIEW LEFT, ANKLE 3 VIEW MIN LEFT Given history: Pain and swelling COMPARISON STUDIES: NONE FINDINGS: Osseous structures: There is diffuse bony demineralization left foot and ankle. No fractures are i dentified. There is very minimal joint space narrowing and several interphalangeal joints. There is a very subtle rarefaction seen in the lateral corner of the talar dome. Joints: normal . Soft tissues: normal . IMPRESSION: Negative acute. Suspect mild osteochondral malacia or possibly developing avascular necrosis in the lateral corner of the talar dome. This could best be evaluated by MRI. Osteopenia. 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
--- NOTE | 2018-06-21 16:29 | RADIOLOGY IMAGING REPORT ---
FACILITY: [facility] PATIENT NAME: Deny Mckenzie : 1930 MR: [id number] V: [id number] EXAM DATE: ORDERING PHYSICIAN: INES TAN TECHNOLOGIST: Location: [facility] Patient: Deny Mckenzie : 1930 Visit/Account:[id number] Date of Sevice: 06/21/2018 FOOT 2 VIEW LEFT, ANKLE 3 VIEW MIN LEFT Given history: Pain and swelling COMPARISON STUDIES: NONE FINDINGS: Osseous structures: There is diffuse bony demineralization left foot and ankle. No fractures are i dentified. There is very minimal joint space narrowing and several interphalangeal joints. There is a very subtle rarefaction seen in the lateral corner of the talar dome. Joints: normal . Soft tissues: normal . IMPRESSION: Negative acute. Suspect mild osteochondral malacia or possibly developing avascular necrosis in the lateral corner of the talar dome. This could best be evaluated by MRI. Osteopenia. 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
== END ==
LOC: RAD 13:40
PROVIDERS: ATTEND Family Medicine
DX: M79.672 Pain in left foot (principal)

== ENCOUNTER 2018-08-03 16:01 | Inpatient (IN) | payer MEDICARE ==
[2017-03-18 10:50] VITALS: Ht 162.6 cm; Wt 62.6 kg
[~2018-08-03] VITALS: Ht 162.6 cm; Wt 62.6 kg
[~2018-08-03 16:01] MED LIST changes: -HYDR12.561 PO; -LEVO137T23 PO
[2018-08-03] MEDS ORDERED: NS(*) 0.9% 500 ML BAG 500 ML IV ONE (16:04)
[2018-08-03] MEDS ORDERED: ONDANSETRON 4 MG/2 ML VIAL IVP ONE (16:05)
--- NOTE | 2018-08-03 16:24 | ER Report ---
History and Physical Time Seen By MD: 16:12 Hx. of Stated Complaint: WEAKNESS SINCE THIS AM HPI/ROS CHIEF COMPLAINT: Weakness HISTORY OF PRESENT ILLNESS: This is an 88-year-old female presents to the emergency department via EMS for "weakness". It is difficult to understand the patient, she's had tongue cancer and her tongue was removed in 2002, however she states that she is not feeling terribly weak at this time, her major complaint when I'm speaking with her is primarily constipation, she states she's not had a bowel movement in about 1 week, she typically has one every day. She denies nausea or vomiting. She denies headaches. No shortness of breath. No fevers or chills. REVIEW OF SYSTEMS: Constitutional: No fever, no chills. Eyes: No discharge. ENT: No sore throat. Cardiovascular: No chest pain, no palpitations. Respiratory: No cough, no shortness of breath. Gastrointestinal: As above. Genitourinary: No hematuria. Musculoskeletal: No back pain. Skin: No rashes. Neurological: No headache. Allergies: Coded Allergies: codeine (Verified Allergy, Unknown, 08/03/18) Home Meds Reported Medications Levothyroxine Sodium (Levoxyl) 125 Mcg Tablet, 125 MCG PO QDAY 05/11/11 Discontinued Scripts Amoxicillin/Potassium Clav (AUGMENTIN 500-125 TABLET) 1 Each Tablet, 1 TAB PO Q12H, #10 TAB Prov:BOOKER BUCIO DO 03/19/17 Past Medical/Surgical History Patient has a past medical and surgical history of hypothyroidism, ton sillectomy, occasionally has an irregular heartbeat, GERD, appendectomy, cholecystectomy, breast cancer, left mastectomy, hysterectomy, depression, cancer of the tongue, removed in 2002. Skin graft from left arm for mouth. Reviewed Nurses Notes: Yes Hx Smoking: No Smoking Status: Never Smoker Exposure to Second Hand Smoke?: No Hx Substance Use Disorder: No Hx Alcohol Use: No Constitutional Vital Sign - Last 24 Hours 08/03/18 08/03/18 08/03/18 08/03/18 16:02 16:03 16:30 16:31 Temp 98.0 Pulse 93 81 Resp 20 B/P (MAP) 135/64 135/64 (87) 99/54 (69) Pulse Ox 100 94 O2 Delivery Room Air 08/03/18 08/03/18 08/03/18 5/29/19 17:00 17:01 17:04 17:30 Pulse 79 B/P (MAP) 55/34 (41) 113/66 (82) 92/46 (61) Pulse Ox 92 08/03/18 08/03/18 08/03/18 08/03/18 17:31 17:36 18:00 18:06 Pulse 74 75 78 B/P (MAP) 98/75 (83) Pulse Ox 90 93 91 08/03/18 08/03/18 08/03/18 08/03/18 18:30 18:36 18:41 18:56 Pulse 76 79 85 B/P (MAP) 102/65 (77) Pulse Ox 90 94 92 08/03/18 08/03/18 19:00 19:11 Pulse 81 B/P (MAP) 109/56 (73) Pulse Ox 86 Physical Exam General Appearance: The patient is alert, has no immediate need for airway protection and no signs of toxicity. Eyes: Pupils equal and round no pallor or injection. ENT, Mouth: Mucous membranes are moist. 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 Respiratory: There are no retractions, lungs are clear to auscultation. Cardiovascular: Regular rate and rhythm. No murmurs, clicks or rubs. Gastrointestinal: Abdomen is very firm mild tenderness throughout with palpation, no masses, hypoactive bowel sounds. Digitally disimpacted stool from the rectal vault, initially very firm large quantity of claylike density stool removed. Small amount of blood noted to the rectal sphincter likely from the pressure the stool. Neurological: Alert and oriented 4. Moving all extremities. Following all commands. No focal neuro deficits. Skin: Stage II pressure ulcer to the left posterior lateral upper thigh, stage I to 2 pressure ulcer to the thoracic back in a linear fashion. Stage I pressure sore to the right posterior thigh. The rectal and vaginal area are excoriated, tissue paper stuck to the patient's rectum and perineum. Musculoskeletal: Neck is supple non tender. Extremities are nontender, nonswollen and have full range of motion. DIFFERENTIAL DIAGNOSIS: After history and physical exam differential diagnosis was considered for constipation, bowel obstruction, gastroenteritis, intussusception. Medical Decision Making Data Points Result Diagram: 08/03/18 1558 08/03/18 1558 Laboratory Hematology Test 08/03/18 15:58 08/03/18 16:50 Red Blood Count 5.24 M/uL (4.17-5.56) Mean Corpuscular Volume 90.5 fL (80.0-96.0) Mean Corpuscular Hemoglobin 29.6 pg (26.0-33.0) Mean Corpuscular Hemoglobin Concent 32.7 g/dL (32.0-36.0) Red Cell Distribution Width 15.1 % (11.5-14.5) Mean Platelet Volume 9.1 fL (7.2-11.1) Neutrophils (%) (Auto) 89.3 % (39.4-72.5) Lymphocytes (%) (Auto) 3.3 % (17.6-49.6) Monocytes (%) (Auto) 7.1 % (4.1-12.4) Eosinophils (%) (Auto) 0.0 % (0.4-6.7) Basophils (%) (Auto) 0.3 % (0.3-1.4) Nucleated RBC Relative Count (auto) 0.0 /100WBC Neutrophils # (Auto) 17.8 K/uL (2.0-7.4) Lymphocytes # (Auto) 0.7 K/uL (1.3-3.6) Monocytes # (Auto) 1.4 K/uL (0.3-1.0) Eosinophils # (Auto) 0.0 K/uL (0.0-0.5) Basophils # (Auto) 0.1 K/uL (0.0-0.1) Nucleated RBC Absolute Count (auto) 0.01 K/uL Sodium Level 128 mmol/L (137-145) Potassium Level 3.5 mmol/L (3.5-5.0) Chloride Level 73 mmol/L (98-107) Carbon Dioxide Level 31 mmol/L (22-31) Blood Urea Nitrogen 99 mg/dl (7-18) Creatinine 2.30 mg/dl (0.52-1.04) Glomerular Filtration Rate Calc 20.0 Random Glucose 208 mg/dl (75-110) Calcium Level 9.2 mg/dl (8.4-10.2) Total Bilirubin 1.5 mg/dl (0.2-1.3) Aspartate Amino Transf (AST/SGOT) 172 U/L (0-35) Alanine Aminotransferase (ALT/SGPT) 39 U/L (0-56) Alkaline Phosphatase 143 U/L (0-126) Total Protein 9.3 g/dl (6.3-8.2) Albumin 4.9 g/dl (3.5-5.0) Urine Color Yellow Urine Clarity Slightly-cloudy Urine pH 5.0 pH (4.8-9.5) Urine Specific [place] 1.014 Urine Protein 30 mg/dL (NEGATIVE) Urine Glucose (UA) Negative mg/dL (NEGATIVE) Urine Ketones Negative mg/dL (NEGATIVE) Urine Blood Moderate (NEGATIVE) Urine Nitrite Negative (NEGATIVE) Urine Bilirubin Negative (NEGATIVE) Urine Urobilinogen Negative mg/dL (0.2-1.9) Urine Leukocyte Esterase Trace (NEGATIVE) Urine RBC 1 /HPF (0-2/HPF) Urine WBC 6 /HPF (0-5/HPF) Urine WBC Clumps Few /HPF Urine Squamous Epithelial Cells Few /LPF (NONE-FEW) Urine Bacteria Many /HPF (NONE-FEW) Urine Hyaline Casts Few /LPF (NONE-FEW) Urine Mucus None /HPF (NONE-FEW) Chemistry Test 08/03/18 15:58 08/03/18 16:50 White Blood Count 19.9 k/uL (4.5-11.0) Red Blood Count 5.24 M/uL (4.17-5.56) Hemoglobin 15.5 g/dL (12.0-16.0) Hematocrit 47.4 % (34.0-47.0) Mean Corpuscular Volume 90.5 fL (80.0-96.0) Mean Corpuscular Hemoglobin 29.6 pg (26.0-33.0) Mean Corpuscular Hemoglobin Concent 32.7 g/dL (32.0-36.0) Red Cell Distribution Width 15.1 % (11.5-14.5) Platelet Count 355 K/uL (150-450) Mean Platelet Volume 9.1 fL (7.2-11.1) Neutrophils (%) (Auto) 89.3 % (39.4-72.5) Lymphocytes (%) (Auto) 3.3 % (17.6-49.6) Monocytes (%) (Auto) 7.1 % (4.1-12.4) Eosinophils (%) (Auto) 0.0 % (0.4-6.7) Basophils (%) (Auto) 0.3 % (0.3-1.4) Nucleated RBC Relative Count (auto) 0.0 /100WBC Neutrophils # (Auto) 17.8 K/uL (2.0-7.4) Lymphocytes # (Auto) 0.7 K/uL (1.3-3.6) Monocytes # (Auto) 1.4 K/uL (0.3-1.0) Eosinophils # (Auto) 0.0 K/uL (0.0-0.5) Basophils # (Auto) 0.1 K/uL (0.0-0.1) Nucleated RBC Absolute Count (auto) 0.01 K/uL Glomerular Filtration Rate Calc 20.0 Calcium Level 9.2 mg/dl (8.4-10.2) Total Bilirubin 1.5 mg/dl (0.2-1.3) Aspartate Amino Transf (AST/SGOT) 172 U/L (0-35) Alanine Aminotransferase (ALT/SGPT) 39 U/L (0-56) Alkaline Phosphatase 143 U/L (0-126) Total Protein 9.3 g/dl (6.3-8.2) Albumin 4.9 g/dl (3.5-5.0) Urine Color Yellow Urine Clarity Slightly-cloudy Urine pH 5.0 pH (4.8-9.5) Urine Specific [place] 1.014 Urine Protein 30 mg/dL (NEGATIVE) Urine Glucose (UA) Negative mg/dL (NEGATIVE) Urine Ketones Negative mg/dL (NEGATIVE) Urine Blood Moderate (NEGATIVE) Urine Nitrite Negative (NEGATIVE) Urine Bilirubin Negative (NEGATIVE) Urine Urobilinogen Negative mg/dL (0.2-1.9) Urine Leukocyte Esterase Trace (NEGATIVE) Urine RBC 1 /HPF (0-2/HPF) Urine WBC 6 /HPF (0-5/HPF) Urine WBC Clumps Few /HPF Urine Squamous Epithelial Cells Few /LPF (NONE-FEW) Urine Bacteria Many /HPF (NONE-FEW) Urine Hyaline Casts Few /LPF (NONE-FEW) Urine Mucus None /HPF (NONE-FEW) Urinalysis Test 08/03/18 16:50 Urine Color Yellow Urine Clarity Slightly-cloudy Urine pH 5.0 pH (4.8-9.5) Urine Specific [place] 1.014 Urine Protein 30 mg/dL (NEGATIVE) Urine Glucose (UA) Negative mg/dL (NEGATIVE) Urine Ketones Negative mg/dL (NEGATIVE) Urine Blood Moderate (NEGATIVE) Urine Nitrite Negative (NEGATIVE) Urine Bilirubin Negative (NEGATIVE) Urine Urobilinogen Negative mg/dL (0.2-1.9) Urine Leukocyte Esterase Trace (NEGATIVE) Urine RBC 1 /HPF (0-2/HPF) Urine WBC 6 /HPF (0-5/HPF) Urine WBC Clumps Few /HPF Urine Squamous Epithelial Cells Few /LPF (NONE-FEW) Urine Bacteria Many /HPF (NONE-FEW) Urine Hyaline Casts Few /LPF (NONE-FEW) Urine Mucus None /HPF (NONE-FEW) EKG/Imaging EKG Interpretation 12 lead EKG: Time of EKG 1610. Rhythm: Sinus rhythm, ventricular rate 86 bpm. Badger: normal QRS: normal ST segments: No ST depression or elevation identified. Significant amount of underlying artifact. Other than artifact no significant changes from the 07/31/2016 EKG. Imaging PATIENT NAME: Deny Mckenzie : 1930 MR: [id number] V: [id number] EXAM DATE: ORDERING PHYSICIAN: RIMA ARELLANO TECHNOLOGIST: Location: [facility] Patient: Deny Mckenzie : 1930 Visit/Account:[id number] Date of Sevice: 08/03/2018 CT ABDOMEN PELVIS W/O CON HISTORY: Abdominal pain TECHNIQUE: Axial images were obtained through the abdomen and pelvis without intravenous contrast . One of the following dose optimization techniques was utilized in the performance of this exam: automated exposure control; adjustment of the mA and/or kv according to patient size; or use of iterative reconstruction technique. Specific details can be referenced in the facility's radiology CT exam operational policy. CONTRAST: None COMPARISON: CT abdomen/pelvis 03/17/2017 FINDINGS: Visualized lung bases: Basilar pulmonary nodules measuring up to 4 mm some of which are unchanged, others are not covered on prior. Hepatobiliary: Negative. Spleen: Negative. Adrenals: Stable bilateral adrenal gland adenomatous hyperplasia. Pancreas: Negative. Kidneys/ureters/bladder: No radiopaque urinary tract calculus. No hydronephro sis. Marked distention of the urinary bladder. Bowel/peritoneum/mesentery: Large amount of colonic stool. No bowel obstruction, free air or ascites. Appendix is not well seen. Vessels: Negative. Lymph nodes: Negative. Pelvic genitourinary: Hysterectomy Bones/body wall: Multilevel ophl-ry-wzyzakxs degenerative change within the spine. Other findings: None significant IMPRESSION: 1. Large amount of colonic stool without obstructive features. No free air. 2. Marked distention of the urinary bladder without hydronephrosis. Recommend correlation for neurogenic bladder or outlet obstruction. 3. Basilar pulmonary nodules measuring up to 4 mm some of which are stable, others are not covered on prior exam. Report Dictated By: Sal Layton MD at 08/03/2018 6:05 PM Report E-Signed By: Sal Layton MD at 08/03/2018 6:18 PM WSN:[id number] PATIENT NAME: Deny Mckenzie : 1930 MR: [id number] V: [id number] EXAM DATE: ORDERING PHYSICIAN: RIMA ARELLANO TECHNOLOGIST: Location: [facility] Patient: Deny Mckenzie : 1930 Visit/Account:[id number] Date of Sevice: 08/03/2018 EXAMINATION: Portable AP Chest HISTORY: Generalized weakness. COMPARISON: 03/17/2017. FINDINGS: There is new blunting of the left costophrenic angle likely representing a small left pleural effusion. The right costophrenic angle is sharp. There are mild chronic appearing interstitial changes bilaterally. No suspicious focal consolidation. No pleural effusion. Normal heart size and pulmonary vascularity with stable cardiomediastinal contours. Aortic calcification. No acute osseous findings. Mild thoracolumbar scoliosis with multilevel degenerative changes along the spine. Prior left mastectomy with surgical clips along the left axilla. IMPRESSION: 1. New small left pleural effusion. 2. No other acute findings in the chest. 3. Mild chronic appearing interstitial changes in the lungs. No suspicious focal consolidation. Report Dictated By: Haroon Chung MD at 08/03/2018 4:52 PM Report E-Signed By: Haroon Chung MD at 08/03/2018 4:55 PM WSN:[id number] Location: [facility] Patient: Deny Mckenzie : 1930 Visit/Account:[id number] Date of Sevекатерина: 08/03/2018 KUB SINGLE VIEW ABDOMEN History: Constipation. Comparison study: None. Findings: Chest: There is a small left pleural effusion. ABDOMEN: There is a fair amount of fecal material throughout the large bowel and in the rectum. The findings are most suggestive of constipation. IMPRESSION: 1. There is a fair amount of fecal material throughout the colon and in the rectum. The findings are consistent with constipation. 2. Small left pleural effusion. Report Dictated By: Tom De La Torre MD at 08/03/2018 4:52 PM Report E-Signed By: Tom De La Torre MD at 08/03/2018 4:53 PM WSN:[id number] ED Course/Re-evaluation Clinical Indication for ER IV: Hydration, IV Access ED Course The patient was admitted to room. A history and physical were obtained. Differential diagnoses were considered. An IV was started. A CBC, CMP were obtained. A catheter UA was collected. A 500 mL normal saline bolus was given. KUB showing constipation, considering the amount of distention and no bowel movement in the last 5 days, I did CT the abdomen and pelvis which was negative for bowel obstruction. CBC showing white count of 20,000, with left shift, sodium 128, chloride 73, BUN 99, creatinine 2.3, AST 172, catheter UA showing proteinuria, moderate amount of blood with many urine bacteria. CT also showing markedly distended bladder, a José catheter was placed 750 mL of dark concentrated urine was removed, patient's states feeling much better after the evacuation of the urine, I also did a digital disimpaction of the rectal vault, a significant amount of stool was removed. Also noted was the pressure ulcer on the left lateral upper thigh gluteal area stage I 2, beginning of a pressure ulcer on the patient's back as well, stage I-2 and a linear type fashion, as well as a stage I on the right posterior thigh. Patient also had a significant amount of excoriation in the rectal and vaginal and perineal area. She was thoroughly cleaned, a barrier cream was applied. I did review the results with the patient and [id number] was at the bedside, I did recommend an admission, they were agreeable, I spoke with Dr. Cr Mason as noted below, he is accepting the patient in to the hospitalist services. 08/03/2018 6:36:52 pm I did speak with Dr. Cr Mason regarding the patient's case, he is accepting the patient and the hospitalist services. Decision to Disposition Date: August 03, 2018 Decision to Disposition Time: 18:36 Depart Departure Latest Vital Signs Vital Signs Date Time Temp Pulse Resp B/P (MAP) Pulse Ox O2 Delivery O2 Flow Rate FiO2 08/03/18 19:11 81 86 08/03/18 19:00 109/56 (73) 08/03/18 16:02 98.0 20 Room Air Impression: Primary Impression: Fecal impaction in rectum Additional Impressions: Hyponatremia Hypochloremia Soft tissue disorder related to use, overuse, and pressure of multiple sites Urinary retention Elevated serum creatinine Condition: Improved Disposition: Admitted from ER Referrals: BOOKER ZAMAN MD (PCP) Problem Qualifiers RIMA ARELLANO INFRASTRUCTURE SOFTWARE ENGINEER-BC August 03, 2018 16:24
--- NOTE | 2018-08-03 16:28 | EKG ---
FACILITY: [facility] PATIENT NAME: JULY ALANIZ : [id number] MR: [id number] V: [id number] EXAM DATE: ORDERING PHYSICIAN: RIMA ARELLANO TECHNOLOGIST: MICHELLE Rangel Reason : Blood Pressure : / mmHG Vent. Rate : 086 BPM Atrial Rate : 086 BPM P-R Int : 146 ms QRS Dur : 072 ms QT Int : 370 ms P-R-T Axes : 089 055 262 degrees QTc Int : 442 ms Diffuse artifact makes interpretation difficult Sinus rhythm with premature ventricular complex Possible LVH Abnormal ECG Confirmed by YOEL ENRIQUEZ ([id number] on 08/03/2018 9:32:07 PM Referred By: Confirmed By:YOEL ENRIQUEZ
[2018-08-03 16:31] LABS: PLATELET COUNT, AUTOMATED 355 K/uL (150-450)
--- NOTE | 2018-08-03 16:56 | RADIOLOGY IMAGING REPORT ---
FACILITY: [facility] [place] PATIENT NAME: Deny Mckenzie : 1930 MR: [id number] V: [id number] EXAM DATE: ORDERING PHYSICIAN: RIMA ARELLANO TECHNOLOGIST: Location: [facility] Patient: Deny Mckenzie : 1930 Visit/Account:[id number] Date of Sevice: 08/03/2018 KUB SINGLE VIEW ABDOMEN History: Constipation. Comparison study: None. Findings: Chest: There is a small left pleural effusion. ABDOMEN: There is a fair amount of fecal material throughout the large bowel and in the rectum. The f indings are most suggestive of constipation. IMPRESSION: 1. There is a fair amount of fecal material throughout the colon and in the rectum. The findings are consistent with constipation. 2. Small left pleural effusion. Report Dictated By: Tom De La Torre MD at 08/03/2018 4:52 PM Report E-Signed By: Tom De La Torre MD at 08/03/2018 4:53 PM WSN:[id number]
--- NOTE | 2018-08-03 16:59 | RADIOLOGY IMAGING REPORT ---
FACILITY: [facility] [place] PATIENT NAME: Deny Mckenzie : 1930 MR: [id number] V: [id number] EXAM DATE: ORDERING PHYSICIAN: RIMA ARELLANO TECHNOLOGIST: Location: [facility] Patient: Deny Mckenzie : 1930 Visit/Account:[id number] Date of Sevice: 08/03/2018 EXAMINATION: Portable AP Chest HISTORY: Generalized weakness. COMPARISON: 03/17/2017. FINDINGS: There is new blunting of the left costophrenic angle likely representing a small left pleural effusio n. The right costophrenic angle is sharp. There are mild chronic appearing interstitial changes bilaterally. No suspicious focal consolidation. No pleural effusion. Normal heart size and pulmonary vascularity with stable cardiomediastinal contours. Aortic calcificat ion. No acute osseous findings. Mild thoracolumbar scoliosis with multilevel degenerative changes along th e spine. Prior left mastectomy with surgical clips along the left axilla. IMPRESSION: 1. New small left pleural effusion. 2. No other acute findings in the chest. 3. Mild chronic appearing interstitial changes in the lungs. No suspicious focal consolidation. Report Dictated By: Haroon Chung MD at 08/03/2018 4:52 PM Report E-Signed By: Haroon Chung MD at 08/03/2018 4:55 PM WSN:[id number]
--- NOTE | 2018-08-03 18:22 | RADIOLOGY IMAGING REPORT ---
FACILITY: [facility] [place] [place] PATIENT NAME: Deny Mckenzie : 1930 MR: [id number] V: [id number] EXAM DATE: ORDERING PHYSICIAN: RIMA ARELLANO TECHNOLOGIST: Location: [facility] Patient: Deny Mckenzie : 1930 Visit/Account:[id number] Date of Sevice: 08/03/2018 CT ABDOMEN PELVIS W/O CON HISTORY: Abdominal pain TECHNIQUE: Axial images were obtained through the abdomen and pelvis without intravenous contrast . One of the following dose optimization techniques was utilized in the performance of this exam: autom ated exposure control; adjustment of the mA and/or kv according to patient size; or use of iterative reconstruction technique. Specific details can be referenced in the facility's radiology CT exam oper ational policy. CONTRAST: None COMPARISON: CT abdomen/pelvis 03/17/2017 FINDINGS: Visualized lung bases: Basilar pulmonary nodules measuring up to 4 mm some of which are unchanged, o thers are not covered on prior. Hepatobiliary: Negative. Spleen: Negative. Adrenals: Stable bilateral adrenal gland adenomatous hyperplasia. Pancreas: Negative. Kidneys/ureters/bladder: No radiopaque urinary tract calculus. No hydronephrosis. Marked distention of the urinary bladder. Bowel/peritoneum/mesentery: Large amount of colonic stool. No bowel obstruction, free air or ascites . Appendix is not well seen. Vessels: Negative. Lymph nodes: Negative. Pelvic genitourinary: Hysterectomy Bones/body wall: Multilevel dkxy-di-ldtvmxgo degenerative change within the spine. Other findings: None significant IMPRESSION: 1. Large amount of colonic stool without obstructive features. No free air. 2. Marked distention of the urinary bladder without hydronephrosis. Recommend correlation for neuroge shivani bladder or outlet obstruction. 3. Basilar pulmonary nodules measuring up to 4 mm some of which are stable, others are not covered on prior exam. Report Dictated By: Sal Layton MD at 08/03/2018 6:05 PM Report E-Signed By: Sal Layton MD at 08/03/2018 6:18 PM WSN:[id number]
[2018-08-03 19:50] VITALS: BP 171/67
[2018-08-03] MEDS ORDERED: INFLUENZA VIRUS VAC 0.5ML SYR IM ONLY ONE (20:25)
--- NOTE | 2018-08-03 20:35 | History & Physical ---
History of Present Illness Chief Complaint Weak History of Present Illness 88yo female with extensive PMHx including tongue cancer s/p glossectomy, breast cancer s/p mastectomy. She reports no appetite for "quite awhile" with poor intake. She states she has not been able to take in much for several days. She has also had some lower extremity edema for which she was placed on a diuretic. Over past few days she has grown progressively weaker. She denied any nausea or vomiting. She denied abdominal pain. She has been constipated as well. She also reports she feels as if she has not been emptying her bladder very well. No dysuria/hematuria. She denied any fevers or chills. She was evaluated in the ER and found to have significant dehydration with acute renal insufficiency, hyponatremia, urinary retention, pressure sores on her back and thighs. She was recommended for admission. History Problems: (1) Breast cancer Status: Resolved (2) Constipation Status: Chronic (3) Hypothyroidism Status: Chronic (4) Bacterial pneumonia (5) Tongue cancer Status: Resolved (6) Left patella fracture Status: Resolved (7) Right patella fracture Status: Resolved (8) Pulmonary nodules Status: Chronic (9) Status post glossectomy Status: Resolved (10) History of knee surgery Status: Resolved (11) History of tonsillectomy Status: Resolved (12) Status post hysterectomy Status: Resolved (13) Status post appendectomy Status: Resolved (14) Status post cholecystectomy Status: Resolved (15) Status post mastectomy Status: Resolved Home Meds Reported Medications Levothyroxine Sodium (Levoxyl) 125 Mcg Tablet, 125 MCG PO QDAY 05/11/11 Discontinued Scripts Amoxicillin/Potassium Clav (AUGMENTIN 500-125 TABLET) 1 Each Tablet, 1 TAB PO Q12H, #10 TAB Prov:BOOKER BUCIO DO 03/19/17 Allergies: Coded Allergies: codeine (Verified Allergy, Unknown, 08/03/18) Other Social/Family Hx She currently lives with her son. Hx Smoking: No Smoking Status: Never Smoker Exposure to Second Hand Smoke?: No Hx Alcohol Use: No Hx Substance Use Disorder: No Review of Systems Constitutional: No Fever, No Chills Neurological: Weakness Eyes: No Vision Change, No Loss of Vision Cardiovascular: No Chest Pain, No Palpitations Respiratory: No Shortness of Breath, No Cough Gastrointestinal: No Nausea, No Vomiting, No Diarrhea; Constipation; No Hem atemesis, No Hematochezia, No Melena, No Abdominal Pain Genitourinary: No Dysuria, No Hematuria Musculoskeletal: Impaired Mobility Exam Vital Signs Vital Signs Date Time Temp Pulse Resp B/P (MAP) Pulse Ox O2 Delivery O2 Flow Rate FiO2 08/03/18 19:11 81 86 08/03/18 19:00 109/56 (73) 08/03/18 16:02 98.0 20 Room Air General Appearance: Alert, Awake Neuro: Other (generalized weakness/no focal deficits noted) Eyes: PERRLA ENT: Other (s/p glossectomy/edentulous) Neck: Other (radiation changes/skin is fairly tight/no masses noted) Cardiovascular: Regular Rate and Rhythm Respiratory: Clear to Auscultation Chest: No Tenderness, Other (s/p left mastectomy) GI: Other (Soft/BS present/healed surgical scars/LUQ gastrostomy scar) Extremities: Warm, Perfused, Edema (1+ both LE) Integumentary: Generalized Fragile Skin, Other (linear pressure sore over upper thoracic area/several other pressure areas of varying size over buttocks an dupper posterior thighs) Medical Decision Making Data Points Result Diagram: 08/03/18 1558 08/03/18 1558 Item Value Date Time Albumin 4.9 g/dl 08/03/18 1558 Total Protein 9.3 g/dl H 08/03/18 1558 Alkaline Phosphatase 143 U/L H 08/03/18 1558 Alanine Aminotransferase (ALT/SGPT) 39 U/L 08/03/18 1558 Aspartate Amino Transf (AST/SGOT) 172 U/L H 08/03/18 1558 Total Bilirubin 1.5 mg/dl H 08/03/18 1558 Calcium Level 9.2 mg/dl 08/03/18 1558 Urine Mucus None /HPF 08/03/18 1650 Urine Hyaline Casts Few /LPF 08/03/18 1650 Urine Squamous Epithelial Cells Few /LPF 08/03/18 1650 Urine Bacteria Many /HPF H 08/03/18 1650 Urine WBC Clumps Few /HPF 08/03/18 1650 Urine WBC 6 /HPF 08/03/18 1650 Urine RBC 1 /HPF 08/03/18 1650 Urine Leukocyte Esterase Trace H 08/03/18 1650 Urine Urobilinogen Negative mg/dL 08/03/18 1650 Urine Bilirubin Negative 08/03/18 1650 Urine Nitrite Negative 08/03/18 1650 Urine Blood Moderate 08/03/18 1650 Urine Ketones Negative mg/dL 08/03/18 165 Urine Glucose (UA) Negative mg/dL 08/03/18 1650 Urine Protein 30 mg/dL 08/03/18 1650 Urine Specific [place] 1.014 08/03/18 1650 Urine pH 5.0 pH 08/03/18 1650 Urine Clarity Slightly-cloudy 08/03/18 1650 Urine Color Yellow 08/03/18 1650 EKG / Imaging Imaging PATIENT NAME: Deny Mckenzie : 1930 MR: [id number] V: [id number] EXAM DATE: ORDERING PHYSICIAN: RIMA ARELLANO TECHNOLOGIST: Location: [facility] - [place] Patient: Deny Mckenzie : 1930 Visit/Account:[id number] Date of Sevice: 08/03/2018 CT ABDOMEN PELVIS W/O CON HISTORY: Abdominal pain TECHNIQUE: Axial images were obtained through the abdomen and pelvis without intravenous contrast . One of the following dose optimization techniques was utilized in the performance of this exam: automated exposure control; adjustment of the mA and/or kv according to patient size; or use of iterative reconst ruction technique. Specific details can be referenced in the facility's radiology CT exam operational policy. CONTRAST: None COMPARISON: CT abdomen/pelvis 03/17/2017 FINDINGS: Visualized lung bases: Basilar pulmonary nodules measuring up to 4 mm some of which are unchanged, others are not covered on prior. Hepatobiliary: Negative. Spleen: Negative. Adrenals: Stable bilateral adrenal gland adenomatous hyperplasia. Pancreas: Negative. Kidneys/ureters/bladder: No radiopaque urinary tract calculus. No hydronephrosis. Marked distention of the urinary bladder. Bowel/peritoneum/mesentery: Large amount of colonic stool. No bowel obstruction, free air or ascites. Appendix is not well seen. Vessels: Negative. Lymph nodes: Negative. Pelvic genitourinary: Hysterectomy Bones/body wall: Multilevel [id number] degenerative change within the spine. Other findings: None significant IMPRESSION: 1. Large amount of colonic stool without obstructive features. No free air. 2. Marked distention of the urinary bladder without hydronephrosis. Recommend correlation for neurogenic bladder or outlet obstruction. 3. Basilar pulmonary nodules measuring up to 4 mm some of which are stable, others are not covered on prior exam. Report Dictated By: Sal Layton MD at 08/03/2018 6:05 PM Report E-Signed By: Sal Layton MD at 08/03/2018 6:18 PM [id number] Assessment and Plan Problems: (1) Dehydration Status: Acute Assessment & Plan: Due to poor intake and diuretic use. Will give generous IV fluids. Watch labs. She will be at risk for recurring problems due to her difficulties with oral intake. We discussed possible feeding tube placement, but she is resistant. She did, however, acknowledge she would agree to have feeding tube placed if it were a matter of living or dying. (2) Elevated serum creatinine Status: Acute Assessment & Plan: Due to dehydration and urinary retention. José cath has been placed. May need to have urology see her. Will give generous IV fluids. Watch labs/UOP. (3) Hypothyroidism Status: Chronic Assessment & Plan: Continue replacement with L-thyroxine. Will place on IV initially. Will see how she does with swallowing before restarting the oral. (4) Hyponatremia Status: Chronic Assessment & Plan: Most likely due to diuretic/dehydration. She will receive IV NS. Watch labs. (5) Urinary retention Status: Acute Assessment & Plan: José cath has been placed. Will relieve her constipation. May need urology to see. (6) Constipation Status: Chronic Assessment & Plan: She had disimpaction done in ER. Will need to see if can get her on a bowel regimen. (7) Pressure sore Status: Acute Assessment & Plan: Multiple. Due to decreased mobility. Will have PT see for wound care as well as mobility/strengthening. Copies to: BOOKER ZAMAN MD ; Venous Thromboembolism Antithrombotics Is Pt On Any Antithrombotics?: Yes Exam Sepsis Risk: No Definite Risk YOEL ENRIQUEZ MD August 03, 2018 20:35
[2018-08-03] MEDS: NS(*) 0.9% 1000 ML BAG 1,000 ML IV PRN (20:49)
[2018-08-03] MEDS: DOCUSATE SOD LIQ 100 MG/10 ML UDC PO SCH (21:48)
[2018-08-03 23:50] VITALS: BP 114/47
[2018-08-04 05:01] VITALS: BP 111/43
[2018-08-04] MEDS: ACETAMINOPHEN ADULT 160 MG/5ML 160 MG/5 ML UDBTL PO PRN (05:35)
[2018-08-04] MEDS ORDERED: cefTRIAXone 1 GM VIAL IVP SCH (06:00)
[2018-08-04] MEDS: NS(*) 0.9% 1000 ML BAG 1,000 ML IV PRN (06:08)
[2018-08-04 06:22] LABS: PLATELET COUNT, AUTOMATED 245 K/uL (150-450)
[2018-08-04 07:45] VITALS: BP 106/45
[2018-08-04] MEDS: LEVOTHYROXINE SOD 100 MCG VIAL IVP SCH (09:25)
[2018-08-04] MEDS: DOCUSATE SOD LIQ 100 MG/10 ML UDC PO SCH ×2 (09:25→21:00)
[2018-08-04] MEDS: ENOXAPARIN 30 MG/0.3 ML SYR SC SCH (09:26)
[2018-08-04] MEDS: KCL/NS* 20 MEQ/1000 ML PREMIX 1,000 ML IV SCH ×2 (09:26→19:35)
--- NOTE | 2018-08-04 09:54 | Hospitalist Progress Note ---
Subjective Progress Notes Subjective This patient was admitted for hypernatremia and dehydration. She had no acute events overnight. Patient Complains of: Cardiovascular: No: Chest Pain Respiratory: No: Shortness of Breath Physical Exam Vital Signs Date Time Temp Pulse Resp B/P (MAP) Pulse Ox O2 Delivery O2 Flow Rate FiO2 08/04/18 09:17 81 08/04/18 07:45 98.0 99 22 106/45 (65) Nasal Cannula 3.0 Intake and Output 08/04/18 07:00 Intake Total 1800 ml Output Total 650 ml Balance 1150 ml Intake Oral 300 ml IV Total 1500 ml Output Urine Total 650 ml # Voids 1 # Bowel Movements 2 Cardiovascular: Regular Rate and Rhythm Respiratory: Clear to Auscultation Result Diagram: 08/04/1845 08/04/18544 Assessment and Plan Problems: (1) Dehydration Status: Acute Assessment & Plan: Improving with IV fluids. (2) Elevated serum creatinine Status: Acute Assessment & Plan: Improving with IV fluids. (3) Hypothyroidism Status: Chronic Assessment & Plan: She is on chronic treatment with Synthroid, which is currently being given IV. (4) Hyponatremia Status: Chronic Assessment & Plan: Improving with IV fluids. (5) Urinary retention Status: Acute Assessment & Plan: A José catheter has been placed. (6) Constipation Status: Chronic Assessment & Plan: She was disimpacted in the ER. She has been started on a constipation protocol. (7) Pressure sore Status: Acute Assessment & Plan: A wound care consult has been placed. Exam Sepsis Risk: No Definite Risk BOOKER BUCIO DO August 04, 2018 09:54
[2018-08-04] MEDS ORDERED: MAGNESIUM HYDROXIDE* 30ML UDCP PO PRN (09:55)
--- NOTE | 2018-08-04 10:14 | Antimicrobial Stewardship ---
Antimicrobial Stewardship Empiricly appropriate: Yes (UTI- poss neurogenic bladder-> Ceftriaxone) Support empiric regimen: Yes Approriate Cultures done: Yes (Urine Cx pending) Renal/Hepatic dosing: Yes (Scr 1.8--> use actual weight, CrCL `17 ml/min) Determine cumulative duration: 1st dose 08/04/18 Determine standard duration: 7 days with cephalosporin Comment 88 yo F with history of glossectomy (tongue cancer) and breast cancer, recently started on a diuretic for lower extremity edema who presented with dehydration and constipation found to have significant urinary retention Tmax 100.8 WBC 19.9 -->23.2 Neuts 73% with 22% bands K 3.0 Scr 2.3--> 1.8 Cr Cl ~17ml//min AST 172-->149 CT abdomen --> distended urinary bladder Urine Cx pending Plan continue treatment with Ceftriaxone 1g IV q24h (no adjustment for CrCl required). Plan to treat for minimum of 7 days, will follow closely. May need to switch to an oral suspension when appropriate to ensure oral dosing. Plan to have urology evaluate patient. Continue treatment as written as pt has an elevated white count, fever. Martina Moses, PharmD, BCOP MARTINA MOSES August 04, 2018 10:14
[2018-08-04] MEDS: ALBUTEROL 2.5 MG/3 ML NEB NEB PRN (10:18)
--- NOTE | 2018-08-04 10:49 | RADIOLOGY IMAGING REPORT ---
FACILITY: [facility] PATIENT NAME: Deny Mckenzie : 1930 MR: [id number] V: [id number] EXAM DATE: ORDERING PHYSICIAN: BOOKER BUCIO TECHNOLOGIST: Location: [facility] Patient: Deny Mckenzie : 1930 Visit/Account:[id number] Date of Sevice: 08/04/2018 CHEST SINGLE AP INDICATION: Hypoxia COMPARISON: 08/03/2018 FINDINGS: Heart size within normal limits. Increased pulmonary vascular congestion is present with a borderline pulmonary edema pattern. Compar ed to yesterday's examination there is new left lower lobe atelectasis versus infiltrate with small e ffusion. Mastectomy changes are noted on the left IMPRESSION: 1. Interval development of a borderline pulmonary edema pattern with new left lower lobe atelectasis versus infiltrate and a small effusion Report Dictated By: Rajeev Romano at 08/04/2018 10:42 AM Report E-Signed By: Rajeev Romano at 08/04/2018 10:44 AM WSN:[id number]
[2018-08-04 12:20] VITALS: BP 106/53
[2018-08-04] MEDS ORDERED: FUROSEMIDE 20 MG/2 ML VIAL IVP ONE (12:40)
--- NOTE | 2018-08-04 14:29 | NUR ---
Respiratory Event Pt. given liquid Colace this am around 0930. She began coughing right after it was swallowed. Her oxygen saturation was WNL on 3L nc. Quickly after, her saturation was low to mid 80%s on 15L non-rebreather. A Bi-PAP was ordered and pt. has been WNL on 100 FiO2. Albuterol and CXR ordered as well.
--- NOTE | 2018-08-04 14:56 | Medical Nutrition Therapy ---
Nutrition Anthropometrics Height (Inches): 64.00 Height (Calculated Centimeters: 162.227220 Weight (Pounds): 123 Weight (Calculated Kilograms): 55.792 BMI: 21.1 Jae Nutrition Score: Very Poor Jae Nutrition Risk Score: 11 Dietary Referral Nutrition Risk Factors: Diff. Swallowing Nutrition Risk Comment: Tongue removed R/T CA, drinks boost for nutrition--poor swallowing. Physical Findings Physical Appearance: Underweight for adult>70 yrs, better to have BMI in 25-32 range for older adults Skin Appearance Skin Appearance: Edema Edema Location Modifier: Left Edema Location: Lower Extremity Type of Edema: Degree of Edema: 2+ Gastrointestinal Symptoms GI Symtoms: Constipation Tube Present: Bowel Sounds: Recent Bowel Pattern: Constipated Stool Characteristics: Brown, Soft Nutrition/Food History Decreased Appetite, Constipation, Difficulty Swallowing Poor Skipped Meals: Yes Nutritional Diagnosis Nutritional Risk Acuity 1: No Appetite, Acute/ES Renal Nutritional Risk Acuity 2: V/D > 3 Days Nutritional Risk Acuity 4: %IBW 90-100% Past Medical History: tongue cancer, tongue resection, breast cancer, hypothyroidism Nutritional Acuity: 1-High Nutrition Diagnosis: Inadequate Food Intake Nutrition Etiology: Mechanical/Motor Issues Nutrition Problem/Etiology/Sym: glossectomy, minimal intake reported, poor appetite Energy Requirement: 1202 (MSJ) Protein Requirement: 61 (1.2g/kg) Fluid Requirement: 1530 (30-35mL/kg 1455-2550) Diet Type: NPO (Nothing by Mouth) Nutrition Intervention: Between meal supplement, Nutrition support, Incr diet as tolerated Nutrition Monitoring & Eval Nutrition Goals: Eat 90-100% Meal Nutrition Follow-Up: Poor Intake RD Patient Assessment Time: [address] Assessment Type: RD Assessment Patient Nutrition Acuity: 1-High Follow Up Date: Aug 07, 2018 Nutritional Comment: Pt admitted with severe dehydration, hyponatremia. Pertinent medical hx of glossectomy, hypothyroidism, hyponatremia in the past. According to H&P patient reports poor appetite, not eating well for past couple days. Has been seen by dietary on past visits. With history of hyponatremia and poor intake would highly recommend tube feed via PEG nocturnal feed and allow for pleasure feed during the day. This would ensure the patient is getting adequate calories and fluid. NIKI RAMIREZ August 04, 2018 14:26
[2018-08-04 15:44] VITALS: BP 99/43
--- NOTE | 2018-08-04 15:55 | Medical Nutrition Therapy ---
Nutritional Support Recommended Enteral / Parental: Tube Feeding Recommended Tube Feeding Formu: Jevity 1cal/ml-Standard Tube Feeding Supplement Streng: Full Recommended Feeding Route: PEG Recommended Goal Rate: 100mL/hr Recommended Duration: 11 Recommended Calories: 1166 Recommended Protein: 49 Nutrition Monitoring & Eval RD Patient Assessment Time: [address] Assessment Type: RD Assessment Patient Nutrition Acuity: 1-High Follow Up Date: Aug 07, 2018 Nutritional Comment: 08/04/18-Pt admitted with severe dehydration, hyponatremia. Pertinent medical hx of glossectomy, hypothyroidism, hyponatremia in the past. According to H&P patient reports poor appetite, not eating well for past couple days. Has been seen by dietary on past visits. With history of hyponatremia and poor intake would highly recommend tube feed via PEG nocturnal feed and allow for pleasure feed during the day. This would ensure the patient is getting adequate calories and fluid. Recommend tube feed at 100mL/hr x 11 hrs nocturnal feed to meet nutritional needs.NIKI GRIMM August 04, 2018 15:55
[2018-08-04 18:38] VITALS: BP 95/45
[2018-08-04 23:30] VITALS: BP 103/45
[2018-08-05 03:30] VITALS: BP 103/44
[2018-08-05] MEDS: KCL/NS* 20 MEQ/1000 ML PREMIX 1,000 ML IV SCH ×2 (05:15→17:32)
[2018-08-05] MEDS ORDERED: cefTRIAXone 1 GM VIAL IVP SCH (06:00)
[2018-08-05 06:24] LABS: PLATELET COUNT, AUTOMATED 192 K/uL (150-450)
[2018-08-05 06:54] VITALS: BP 104/41
[2018-08-05] MEDS: ENOXAPARIN 30 MG/0.3 ML SYR SC SCH (08:37)
[2018-08-05] MEDS: POLYETHYLENE GLYCOL 17 GM PKT PO SCH (08:38)
[2018-08-05] MEDS: LEVOTHYROXINE SOD 100 MCG VIAL IVP SCH (08:38)
[2018-08-05] MEDS: DOCUSATE SOD LIQ 100 MG/10 ML UDC PO SCH ×2 (08:38→20:13)
[2018-08-05 08:41] VITALS: BP 103/40
[2018-08-05] MEDS: ALBUTEROL 2.5 MG/3 ML NEB NEB PRN (08:47)
[2018-08-05] MEDS: AMPICILLIN/SULBACT (*) 3 GM VL 3 GM in NS(*) 0.9% 100 ML MINI-BAG 100 ML IVPB SCH ×2 (10:17→21:26)
[2018-08-05 10:49] VITALS: BP 98/41
--- NOTE | 2018-08-05 11:19 | Antimicrobial Stewardship ---
Antimicrobial Time Out Antimicrobial Stewardship MD Service: Hospitalist Indications: UTI Antimicrobial Used Rocephin changed to Unasyn to broaden coverage due to an aspiration incident and bandemia. YAMILA VIRK August 05, 2018 11:19
--- NOTE | 2018-08-05 12:09 | Hospitalist Progress Note ---
Subjective Progress Notes Subjective VERONICA overnight, continues to have high O2 needs after aspiration event. Cough loosened up some. Physical Exam Vital Signs Date Time Temp Pulse Resp B/P (MAP) Pulse Ox O2 Delivery O2 Flow Rate FiO2 08/05/18 11:08 95 Vapotherm 25.0 55.0 08/05/18 10:49 99.6 88 20 98/41 (60) Intake and Output 08/05/18 07:00 Intake Total 3255 ml Output Total 1600 ml Balance 1655 ml Intake Oral 0 ml IV Total 3255 ml Output Urine Total 1600 ml # Bowel Movements 5 General Appearance: Alert, Awake, No Acute Distress Neuro: No Gross deficits Cardiovascular: Normal Rhythm & Peripheral Pulses Respiratory: Other (coarse breath sounds R >L, on HHFNC) GI: Soft and Non-Tender Extremities: Soft and Non Tender, Warm, Pulses, Perfused Integumentary: Other (Appear to be gil not pressure wounds on back and thigh) Result Diagram: 08/05/1852908/05/18529 Assessment and Plan Problems: (1) LALA (acute kidney injury) Assessment & Plan: Improving with IV fluids. Renally dosing medications. (2) Acute respiratory failure with hypoxia Assessment & Plan: Secondary to aspiration. Likely pneumonitis but with leukocytosis and bandemia we will cover for aspiration pneumonia with empiric Unasyn. (3) Dehydration Status: Acute Assessment & Plan: Improving with IV fluids. (4) Hypothyroidism Status: Chronic Assessment & Plan: She is on chronic treatment with Synthroid, which is currently being given IV. (5) Hyponatremia Status: Chronic Assessment & Plan: Improving with IV fluids. (6) Urinary retention Status: Acute Assessment & Plan: A José catheter has been placed. (7) Constipation Status: Chronic Assessment & Plan: She was disimpacted in the ER. She has been started on a constipation protocol. (8) Superficial burn Assessment & Plan: Previously documented as pressure wounds, wound care is jonatan nichols. Appear to be healing well. Exam Sepsis Risk: No Definite Risk LINN FIONA RICE DO August 05, 2018 12:08
--- NOTE | 2018-08-05 13:20 | NUR ---
Physical Therapy Impression Pt with continued increased O2 needs (25L via vapotherm). Will evaluate when medically appropriate. ER documentation notes areas of skin breakdown consistent with nurse's report. Pt currently with zinc based orange cream to buttocks to manage excoriated skin and silicone border dressings applied to L) posterior upper thigh and R) shoulder blade extending to midline. Area being treated effectively with zinc based moisture barrier cream and frequent pericare for loose stool. L) posterior/upper thigh: This wound initially appears as a burn might, with a disrupted blister superficially and deeper red/purple in base of wound indicating a possible deeper tissue injury. Unlikely area to have pressure ulcer, as this is along the posterior thigh, but not at a bony prominence. It is possible, however, that pt was sitting on something rectangular in shape, such as a remote control or cell phone, that may have created pressure and/or heat from a battery. No debridement is indicated at this time and no signs or symptoms of infection are immediately noted. Blister to be protected and not disrupted further if at all possible. Area covered with xeroform, vasaline impregnated gauze layer and secured with silicone border 6x6 dressings in an overlapping manner. Goal is to allow this to remain intact for a full week and only change if it becomes contaminated, disloged or overly saturated. R) scapula: Curvilinear area of deep tissue injury with purple and red non-blancheable tissue. Small blistered area at superior end has been disrupted with slight drainage. No signs or symptoms of infection immediately noted. This could represent a foreign object or clothing wrinkle that pt was in contact with for an extended period of time in her chair. Due to pt's very limited body mass and decreased fat layer, pressure injuries can be more substantial. Pt and nursing encouraged to complete more aggressive full turns for complete off loading of shoulder blade, spine and ischial tuberosities, as well as posterior thigh. This will need to be completed every 2 hours to minimize risk to greater trochanters and fibular heads. Nursing also encouraged to obtain a low air loss, alternating air chamber bed once it becomes available to further decrease this risk of skin breakdown. R) lateral malleolus and heel were somewhat red, however, after repositioning it resolved easily. No debridement indicated at this area and Mepilex border 6x6 dressing applied for padding and protection to minimize sheering. Goal is to allow this to remain intact for a full week and only change if it becomes contaminated, disloged or overly saturated. R) Ischial tuberosity: Area is not open, thus no depth provided. Stage 1 pressure injury indicates that the skin is red and not blancheable in the center that measures 0.5cm L x 0.5cm W, extending from this is a pink area that does still remain blancheable which measures 3.5cm L x 3cm W. No debridement indicated and this site should be aggressively off loaded with full sidelying turns every 2 hours to resolve pressure. Physical Therapy Goals Patient's Goals
[2018-08-05 14:58] VITALS: BP 109/43
[2018-08-05 19:32] VITALS: BP 109/42
[2018-08-06 04:04] VITALS: BP 105/46
[2018-08-06] MEDS: KCL/NS* 20 MEQ/1000 ML PREMIX 1,000 ML IV SCH ×2 (04:07→15:19)
[2018-08-06 06:16] LABS: PLATELET COUNT, AUTOMATED 164 K/uL (150-450)
--- NOTE | 2018-08-06 06:39 | RADIOLOGY IMAGING REPORT ---
FACILITY: [facility] PATIENT NAME: Deny Mckenzie : 1930 MR: [id number] V: [id number] EXAM DATE: ORDERING PHYSICIAN: FIONA RICE TECHNOLOGIST: Location: [facility] - [place] Patient: Deny Mckenzie : 1930 Visit/Account:[id number] Date of Sevice: 08/06/2018 PORTABLE CHEST: Indication: Cough. Technique: A single frontal film was obtained. Comparison: 08/04/2018 Skeletal and soft tissue structures: Stable. Heart and mediastinum: Stable. Lung camarena: There is ill-defined opacity in the left lower lung field, suggesting pneumonia. Pleural spaces: There appears to be a small catheter in the left pleural space. There are bilateral s mall effusions. No evidence of pneumothorax. Impression: Left basilar opacity, suggesting pneumonia. Bilateral small pleural effusions. Report Dictated By: Jamarcus Araya MD at 08/06/2018 6:31 AM Report E-Signed By: Jamarcus Araya MD at 08/06/2018 6:34 AM [id number]
[2018-08-06 07:03] VITALS: BP 107/45
[2018-08-06] MEDS: DOCUSATE SOD LIQ 100 MG/10 ML UDC PO SCH ×2 (08:21→21:00)
[2018-08-06] MEDS: POLYETHYLENE GLYCOL 17 GM PKT PO SCH (08:21)
--- NOTE | 2018-08-06 08:30 | Hospitalist Progress Note ---
Subjective Progress Notes Subjective This patient was admitted for constipation, but then had an aspiration event. She had no acute issues overnight. Patient Complains of: Cardiovascular: No: Chest Pain Respiratory: No: Shortness of Breath Physical Exam Vital Signs Date Time Temp Pulse Resp B/P (MAP) Pulse Ox O2 Delivery O2 Flow Rate FiO2 08/06/18 08:15 91 CPAP 30.0 08/06/18 07:03 100.1 87 14 107/45 (65) 08/05/18 16:30 70.0 Intake and Output 08/06/18 07:00 Intake Total 1109 ml Output Total 1200 ml Balance -91 ml IV Total 1109 ml Output Urine Total 1200 ml # Bowel Movements 4 Cardiovascular: Regular Rate and Rhythm Respiratory: Clear to Auscultation Result Diagram: 08/06/1852808/06/18528 Assessment and Plan Problems: (1) LALA (acute kidney injury) Assessment & Plan: Improving with IV fluids. (2) Aspiration pneumonia Assessment & Plan: She did have an aspiration event several days ago. She was started on empiric treatment with Unasyn. A swallow evaluation is pending. (3) Acute respiratory failure with hypoxia Assessment & Plan: Secondary to aspiration. Likely pneumonitis but with leukocytosis and bandemia we will cover for aspiration pneumonia with empiric Unasyn. (4) Dehydration Status: Acute Assessment & Plan: Improving with IV fluids. (5) Hypothyroidism Status: Chronic Assessment & Plan: She is on chronic treatment with Synthroid, which is currently being given IV. (6) Hyponatremia Status: Chronic Assessment & Plan: Improving with IV fluids. (7) Urinary retention Status: Acute Assessment & Plan: A José catheter has been placed. (8) Constipation Status: Chronic Assessment & Plan: She was disimpacted in the ER. She has been started on a constipation protocol. (9) Superficial burn Assessment & Plan: Previously documented as pressure wounds, wound care is seeing. Appear to be healing well. Exam Sepsis Risk: No Definite Risk BOOKER BUCIO DO Aug 06, 2018 08:30
[2018-08-06] MEDS: LEVOTHYROXINE SOD 100 MCG VIAL IVP SCH (08:45)
[2018-08-06] MEDS: ENOXAPARIN 30 MG/0.3 ML SYR SC SCH (08:49)
[2018-08-06] MEDS: AMPICILLIN/SULBACT (*) 3 GM VL 3 GM in NS(*) 0.9% 100 ML MINI-BAG 100 ML IVPB SCH ×2 (08:51→20:49)
--- NOTE | 2018-08-06 14:25 | NUR ---
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 SBAR with nursing regarding pt/family wishes. Hospitalist plans to have a discussion with pt/family regarding care options. Will attempt further eval after this takes place, when appropriate.
--- NOTE | 2018-08-06 15:13 | SLP BEDSIDE SWALLOW EVALUATION ---
SPEECH THERAPY vehicle cost engineer: Mary Alice Godoy MS, [employer]-[facility] [address] [employer] Type of Assessment: Bedside dysphagia Evaluation Patient: Deny Mckenzie : 1930 Evaluation Date: 08/06/2018 BACKGROUND The patient is an 88o old female admitted to [facility] from ER. She initially presented with constipation and was dehydrated. She has a PMHx significant for tongue cancer and received a glossectomy. At home, the patients PO intake consists almost exclusively of Resource nutrition drink. Family reports it is a desouza to get her to drink water. While taking PO medicine in thin liquid form on 08/04/18 the patient is suspected to have aspirated. She experienced hypoxia and was placed on CPAP. ST swallow eval was attempted on 08/04 and 08/05 however pt was not medically appropriate. Primary Medical Diagnosis: constipation, dehydration Medical hx:. hx of tongue cancer, glossectomy, Pain Scale (0-10): denies pain LOC / Participation: alert, cooperative Follows instructions: ye Orientation: A&O to self, location, situation, time, caregivers/family. Functional Communication Deficits impact swallow function/safety, or response to therapy: Yes. Pt speech is largely unintelligible to unfamiliar listeners. Family are better at understanding he speech. Her writing is largely illegible. Use of alphabet board unsuccessful as pt appeared not to know how to spell the word she was trying to communicate. VOICE Vocal Deficits: family reports no change. Pt denies change DYSPHAGIA Sialorrhea: No Xerostomia: Yes Supplemental Oxygen Use: Yes. CPAP, 30L Oxygen Saturation: 95% COPD Dx: no Pain with Swallow: denies current and hx of pain with swallow. Pt was seen at the bedside for clinical swallowing assessment. Pt was alert and participatory. Initially the pt refused to trial any liquids or foods including ice chips and responded affirmatively when asked if she was concerned about aspiration. Once patient's daughter in law and grandson were present, the pt agreed to trial nectar thickened water and Boost. Oromotor exam was significant for past total glossectomy. The patent is edentulous and does not where dentures. She denies coughing/choking or other pharyngeal dysphagia s/s at home and believes the aspiration of medicine in thin liquid form on 08-04-18 was an isolated event. The patient's daughter in law endorses s/s of dysphagia at home are more frequent than patient's report and reports that coughing/choking occurs at least daily with meals. Administered PO trials of nectar thickened liquids by teaspoon. Initial sip was unremarkable. Second sip resulted in immediate s/s of aspiration including coughing/choking for approximately 2minutes. The patient's cough reflex was fairly strong and she likely cleared a good portion of the aspirated material. SPo2 levels dropped from 94% to 88% and then slowly began to increase. At this time, it is recommended that the patient remain NPO d/t to overt s/s of pharyngeal dysphagia with suspected aspiration of nectar thickened liquids. An MBS may be appropriate if the patient's strength/health improves, possibly allowing the patient to return to PO at least for pleasure eating depending on results. Pt and family are agreeable to this. ST ASSESSMENT SUMMARY Recommendations: - Tube Feeding - Remain NPO until MBSS can be completed to assess if pt is appropriate for any PO to allow for pleasure eating. - MBSS Medications: NPO Aspiration Risk: significantly increased with PO intake. Suspected aspiration witnessed on 08-04-18 and 08-06-18 KENROY: level 1: Severe dysphagia: NPO: Unable to tolerate any P.O. safely Speech Therapy Need Will complete MBSS and make further recommendations for PO pleasure eating as results indicate PLAN OF CARE Short Term Goals 1. Pt will complete an MBSS and demonstrate comprehension of results and recommendations. Rehabilitation Prognosis: Guarded Thank you for this referral. Mary Alice Godoy M.S., [facility] [address] [facility] Speech Therapist ELIZABETH
[2018-08-06 15:20] VITALS: BP_SYST 107; BP_SYST 114; BP_DIAS 45; BP_DIAS 48
[2018-08-06] MEDS: ACETAMINOPHEN(*)1000 MG/100 ML 100 ML IVPB PRN (15:42)
[2018-08-06 20:24] VITALS: BP 107/47
[2018-08-06 23:22] VITALS: BP 99/44
[2018-08-07 02:27] VITALS: BP_SYST 115; BP_SYST 116; BP_DIAS 46; BP_DIAS 48
[2018-08-07] MEDS: ACETAMINOPHEN(*)1000 MG/100 ML 100 ML IVPB PRN ×2 (03:07→20:11)
[2018-08-07] MEDS: POLYETHYLENE GLYCOL 17 GM PKT PO SCH (09:00)
[2018-08-07] MEDS: DOCUSATE SOD LIQ 100 MG/10 ML UDC PO SCH ×2 (09:00→20:48)
[2018-08-07] MEDS: ENOXAPARIN 30 MG/0.3 ML SYR SC SCH (10:08)
[2018-08-07] MEDS: LEVOTHYROXINE SOD 100 MCG VIAL IVP SCH (10:08)
[2018-08-07] MEDS: AMPICILLIN/SULBACT (*) 3 GM VL 3 GM in NS(*) 0.9% 100 ML MINI-BAG 100 ML IVPB SCH ×2 (10:12→20:42)
[2018-08-07] MEDS: LR(*) 1000 ML BAG 1,000 ML IV PRN ×2 (10:24→20:11)
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
[2018-08-07] MEDS: ALBUTEROL 2.5 MG/3 ML NEB NEB PRN ×2 (11:24→17:05)
--- NOTE | 2018-08-07 12:23 | Medical Nutrition Therapy ---
Nutrition Anthropometrics Height (Inches): 64.00 Height (Calculated Centimeters: 162.236570 Weight (Pounds): 131 Weight (Calculated Kilograms): 59.421 BMI: 21.1 Jae Nutrition Score: Very Poor Jae Nutrition Risk Score: 10 Dietary Referral Nutrition Risk Factors: Diff. Swallowing Nutrition Risk Comment: Tongue removed R/T CA, drinks boost for nutrition--poor swallowing. Physical Findings Physical Appearance: Underweight for adult>70 yrs, better to have BMI in 25-32 range for older adults Skin Appearance Skin Appearance: Edema Edema Location Modifier: Left Edema Location: Lower Extremity Type of Edema: Degree of Edema: 2+ Gastrointestinal Symptoms GI Symtoms: Constipation Tube Present: Bowel Sounds: Recent Bowel Pattern: Constipated Stool Characteristics: Brown, Soft Nutrition/Food History Constipation Poor Nutritional Diagnosis Nutritional Risk Acuity 1: No Appetite, Acute/ES Renal Nutritional Risk Acuity 2: V/D > 3 Days Nutritional Risk Acuity 4: %IBW 90-100% Past Medical History: tongue cancer, tongue resection, breast cancer, hypothyroidism Nutritional Acuity: 1-High Nutrition Diagnosis: Inadequate Food Intake Nutrition Etiology: Mechanical/Motor Issues Nutrition Problem/Etiology/Sym: glossectomy, minimal intake reported, poor appetite Energy Requirement: 1516 (MSJ AF1.3) Protein Requirement: 61 (1.2g/kg) Fluid Requirement: 1530 (30-35mL/kg 2022-6818) Diet Type: NPO (Nothing by Mouth) Nutrition Intervention: Between meal supplement, Nutrition support, Incr diet as tolerated Nutritional Support Recommended Enteral / Parental: Tube Feeding Recommended Tube Feeding Formu: Jevity 1cal/ml-Standard Tube Feeding Supplement Streng: Full Recommended Feeding Route: PEG Recommended Goal Rate: 130mL/hr Recommended Duration: 11 Recommended Feeding Comment: Recommend nocturnal feed for 11 hrs. 115 mL H20 TID to meet fluid needs. Recommended Calories: 1516 (Recalculated energy needs) Recommended Protein: 61 Nutrition Monitoring & Eval Nutrition Follow-Up: Poor Intake RD Patient Assessment Time: [address] Assessment Type: RD Re-Assessment Patient Nutrition Acuity: 1-High Follow Up Date: Aug 10, 2018 Nutritional Comment: Discussed pt with RN. Plan is for a PEG placement. Recalculated energy needs. Recommend Jevity 1.0 a basic EN formula containing fiber since pt has a hx of constipation. Goal rate 130mL/hr x 11 hrs nocturnal via pump. Free water flushes of 115 mL TID to meet fluid requirements. In addition flush 30mL H20 with every medication administration. Enteral nutrition will provide 1,516 kcal, 63 g Protein, 1,194 mL H20 (from fromula), and 20.5 g of fiber. NIKI RAMIREZ Aug 07, 2018 11:47
[2018-08-07 15:57] VITALS: BP 113/47
[2018-08-07 19:33] VITALS: BP 125/81
[2018-08-07 20:00] VITALS: BP 119/48
[2018-08-07 23:13] VITALS: BP 117/54
[2018-08-08 03:27] VITALS: BP 124/67
[2018-08-08] MEDS: LR(*) 1000 ML BAG 1,000 ML IV PRN (06:28)
[2018-08-08 07:14] VITALS: BP 103/84
[2018-08-08] MEDS: POLYETHYLENE GLYCOL 17 GM PKT PO SCH (09:00)
[2018-08-08] MEDS: DOCUSATE SOD LIQ 100 MG/10 ML UDC PO SCH (09:00)
[2018-08-08] MEDS: ENOXAPARIN 30 MG/0.3 ML SYR SC SCH (09:25)
[2018-08-08] MEDS: BISACODYL 10 MG SUPP PR PRN (09:26)
[2018-08-08] MEDS: AMPICILLIN/SULBACT (*) 3 GM VL 3 GM in NS(*) 0.9% 100 ML MINI-BAG 100 ML IVPB SCH ×2 (09:26→21:01)
[2018-08-08] MEDS: LEVOTHYROXINE SOD 100 MCG VIAL IVP SCH (09:30)
[2018-08-08] MEDS: D5 1/2 NS(*) 1000 ML BAG 1,000 ML IV PRN ×2 (10:12→21:00)
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
[2018-08-08 10:45] VITALS: BP 127/62
--- NOTE | 2018-08-08 12:12 | NUR ---
Occupational Therapy Impression Bilateral upper extremity AROM/AAROM completed supine in bed. Pt drowsy, requiring frequent rest breaks. HR 125-135bpm at rest. Increased to 135-144bpm with supine AROM/AAROM. SpO2 WNL on vapotherm. Pt declining further needs at this time. Pending progression, pt may require long-term rehab. Occupational Therapy Goals Patient's Goal
--- NOTE | 2018-08-08 13:09 | NUR ---
Physical Therapy Impression Pt is very limited currently in her capacity to participate in basic ADL's even simple bed mobility, scooting and rolling activities. Pt noted to have increased HR and fatigues quickly with bed mobility to inspect skin and apply dressings. Pt would benefit from long-term subacute rehab to return to PLOF as tolerated over time and address concerns related to SpO2 and HR during functional mobility. PT re-eval completed for previously documented skin breakdown. L) posterior thigh dressing remains well intact and was not disrupted. R) scapular area dressing changed due to roll at inferior border. R) ischial tuberosity remains open to air with aggressive off loading of bony prominences to address this site. Pt to reinspect later this week to ensure effectiveness of dressing application. Physical Therapy Goals Patient's Goals
[2018-08-08] MEDS: ACETAMINOPHEN(*)1000 MG/100 ML 100 ML IVPB PRN (14:14)
[2018-08-08 17:46] VITALS: BP 120/54
[2018-08-08 20:24] VITALS: BP 120/50
[2018-08-08 23:38] VITALS: BP 108/49
[2018-08-09 03:45] VITALS: BP 113/51
[2018-08-09 06:19] LABS: PLATELET COUNT, AUTOMATED 142 K/uL (150-450)
[2018-08-09 06:55] VITALS: BP 115/60
[2018-08-09] MEDS: D5 1/2 NS(*) 1000 ML BAG 1,000 ML IV PRN (07:55)
[2018-08-09] MEDS ORDERED: LEVO137T23 PO (08:26)
[2018-08-09] MEDS ORDERED: HYDR12.561 PO (08:40)
[2018-08-09] MEDS: ENOXAPARIN 30 MG/0.3 ML SYR SC SCH (09:11)
[2018-08-09] MEDS: AMPICILLIN/SULBACT (*) 3 GM VL 3 GM in NS(*) 0.9% 100 ML MINI-BAG 100 ML IVPB SCH ×2 (09:13→20:52)
[2018-08-09] MEDS: KCL/D1/2NS 20 MEQ 1000 ML 1,000 ML IV SCH ×2 (09:14→20:03)
[2018-08-09] MEDS: LEVOTHYROXINE SOD 100 MCG VIAL IVP SCH (09:19)
[2018-08-09] MEDS ORDERED: NS(*) 0.9% 250 ML BAG 250 ML ONE (09:23)
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
[2018-08-09] MEDS: ACETAMINOPHEN(*)1000 MG/100 ML 100 ML IVPB PRN (10:53)
--- NOTE | 2018-08-09 11:17 | NUR ---
Physical Therapy Impression Pt requires total A x3 for supine<>sit transfer and Min A to sit at EOB for approximately 2 minutes. VSS through treatment, however, Pt reporting elevated pain. Pt turned and bony prominences off-loaded appropriately. Physical Therapy Goals Patient's Goals
--- NOTE | 2018-08-09 11:44 | NUR ---
Occupational Therapy Impression PT/OT co-tx for pt safety. Time split for billing purposes, non-billable OT time. Pt reporting pain at 10/10 seated EOB, 8/10 supine in bed. Positioning offered, offloaded on left side. Pt verbalized relief. Total Ax2-3 bed mobility. Assist x1-2 seated EOB [id number]. VSS throughout. Pt on vapotherm, declining further needs at end of tx. Recommend further rehab upon discharge. Occupational Therapy Goals Patient's Goal
[2018-08-09 15:49] VITALS: BP 109/65
--- NOTE | 2018-08-09 18:01 | General Surgery Consultation ---
History of Present Illness Requesting Physician Hospitalist service Reason for Consult Feeding tube Chief Complaint None History of Present Illness 88-year-old female is admitted to the hospitalist service after aspirating. She does have a history of a glossectomy for cancer. She did have a feeding tube several years ago after her cancer surgery but it has been since removed. She is a high aspiration risk and so I have been asked to place a feeding tube to provide adequate nutrition. 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 (3) Hyponatremia Status: Chronic (4) Hypothyroidism Status: Chronic (5) Pulmonary nodules Status: Chronic (6) Status post mastectomy Status: Resolved (7) Status post cholecystectomy Status: Resolved (8) Status post appendectomy Status: Resolved (9) Status post hysterectomy Status: Resolved (10) History of tonsillectomy Status: Resolved (11) History of knee surgery Status: Resolved (12) Status post glossectomy Status: Resolved Home Meds Reported Medications Hydrochlorothiazide (HYDROCHLOROTHIAZIDE) 12.5 Mg Tablet, 12.5 MG PO QDAY, TAB 08/09/18 Levothyroxine Sodium (LEVOTHYROXINE SODIUM) 137 Mcg Tablet, 137 MCG PO QDAY 08/09/18 Discontinued Reported Medications Levothyroxine Sodium (Levoxyl) 125 Mcg Tablet, 137 MCG PO QDAY 05/11/11 Discontinued Scripts Amoxicillin/Potassium Clav (AUGMENTIN 500-125 TABLET) 1 Each Tablet, 1 TAB PO Q12H, #10 TAB Prov:BOOKER BUCIO 03/19/17 Allergies: Coded Allergies: codeine (Verified Allergy, Unknown, 08/03/18) Review of Systems All Systems Reviewed/Normal: Yes, Except as Noted Exam Vital Signs Vital Signs Date Time Temp Pulse Resp B/P (MAP) Pulse Ox O2 Delivery O2 Flow Rate FiO2 08/09/18 17:32 95 Vapotherm 15.0 54.0 08/09/18 15:49 98.2 76 20 109/65 (80) General Appearance: Alert, Awake, No Acute Distress, Afebrile GI: Abd Soft and Non-Tender Extremities: Warm, Perfused Psych: Alert & Oriented X3, Appropriate Mood & Affect Medical Decision Making Data Points Result Diagram: 08/09/18 0539 08/09/18 0539 Assessment and Plan Problems: (1) Aspiration pneumonia Status: Acute Assessment & Plan: 08/09/18: I have discussed placing a feeding tube, specifically a PEG tube, with the patient and her son. I have explained the procedure in great detail as well as the alternatives, risks, and expected recovery. They indicate their understanding of this discussion and their questions have been answered. They would like to proceed with PEG tube placement. I have also informed them that it needs to be in a minimum of 3 month s to allow the tract to heal and so if they decide they do not want the PEG tube after its placed they will need to wait at least 3 months to have it removed. They assure me that they anticipate that this will be in for the rest of her life. We will plan on PEG tube placement tomorrow morning. (2) Poor nutrition Status: Chronic Condition Stable Time Spent: < 30 min Venous Thromboembolism Antithrombotics Is Pt On Any Antithrombotics?: Yes Problem Qualifiers (1) Aspiration pneumonia: Aspiration pneumonia type: unspecified Laterality: unspecified laterality Lung location: unspecified part of lung Qualified Codes: J69.0 - Pneumonitis due to inhalation of food and vomit BOOKER RUCKER MD Aug 09, 2018 18:01
[2018-08-09 19:05] VITALS: BP 113/60
[2018-08-10 02:00] VITALS: BP 106/51
[2018-08-10] MEDS ORDERED: NORMOSOL R SOLN(*) 1000 ML BAG 1,000 ML IV ONE (06:00)
[2018-08-10] MEDS ORDERED: FAMOTIDINE(*) 20MG/50ML PREMIX 50 ML IVPB ONE (06:00)
--- NOTE | 2018-08-10 06:49 | General Surgery Progress Note ---
Subjective Progress Notes Subjective No complaints. Physical Exam Vital Signs Date Time Temp Pulse Resp B/P (MAP) Pulse Ox O2 Delivery O2 Flow Rate FiO2 08/10/18 02:00 98.3 78 16 106/51 (69) 91 CPAP 5.0 08/09/18 20:04 59.0 Intake and Output 08/10/18 07:00 Intake Total 1340 ml Output Total 425 ml Balance 915 ml Intake Oral 240 ml IV Total 1100 ml Output Urine Total 425 ml # Bowel Movements 2 General Appearance: Alert, Awake, No Acute Distress, Afebrile Result Diagram: 08/09/18 0539 08/09/18 0539 Assessment and Plan Problems: (1) Aspiration pneumonia Status: Acute Assessment & Plan: 08/09/18: I have discussed placing a feeding tube, sp ecifically a PEG tube, with the patient and her son. I have explained the procedure in great detail as well as the alternatives, risks, and expected recovery. They indicate their understanding of this discussion and their questions have been answered. They would like to proceed with PEG tube placeme nt. I have also informed them that it needs to be in a minimum of 3 months to allow the tract to heal and so if they decide they do not want the PEG tube after its placed they will need to wait at least 3 months to have it removed. They assure me that they anticipate that this will be in for the rest of her life. We will plan on PEG tube placement tomorrow morning. 08/10/18: PEG tube placement today. Pt wishes to proceed. (2) Poor nutrition Status: Chronic Condition Stable. Time Spent: < 30 min Exam Sepsis Risk: Sepsis Risk Problem Qualifiers (1) Aspiration pneumonia: Aspiration pneumonia type: unspecified Laterality: unspecified laterality Lung location: unspecified part of lung Qualified Codes: J69.0 - Pneumonitis due to inhalation of food and vomit BOOKER RUCKER MD Aug 10, 2018 06:49
[2018-08-10 07:08] VITALS: BP 107/48
[2018-08-10 07:11] LABS: PLATELET COUNT, AUTOMATED 128 K/uL (150-450)
[2018-08-10] MEDS: ALBUTEROL 2.5 MG/3 ML NEB NEB PRN (07:24)
[2018-08-10] MEDS ORDERED: PROPOFOL EMUL(*) 10MG/ML 20 ML 20 ML ONE (08:06)
[2018-08-10] MEDS ORDERED: LIDOCAINE MPF 1% 5 ML VIAL ONE (08:06)
[2018-08-10] MEDS ORDERED: ONDANSETRON 4 MG/2 ML VIAL ONE (08:07)
[2018-08-10] MEDS: LEVOTHYROXINE SOD 100 MCG VIAL IVP SCH (09:16)
[2018-08-10] MEDS: AMPICILLIN/SULBACT (*) 3 GM VL 3 GM in NS(*) 0.9% 100 ML MINI-BAG 100 ML IVPB SCH ×2 (09:21→22:07)
[2018-08-10] MEDS ORDERED: fentaNYL CITR 100 MCG/2 ML AMP ONE (10:22)
[2018-08-10] MEDS ORDERED: SUGAMMADEX SOD 200 MG/2 ML SDV ONE (10:50)
[2018-08-10 12:15] VITALS: BP 113/52
--- NOTE | 2018-08-10 12:30 | Medical Nutrition Therapy ---
Nutrition Anthropometrics Height (Inches): 64.00 Height (Calculated Centimeters: 162.246836 Weight (Pounds): 137 Weight (Calculated Kilograms): 62.142 BMI: 21.1 Jae Nutrition Score: Very Poor Jae Nutrition Risk Score: 11 Dietary Referral Nutrition Risk Factors: Diff. Swallowing Nutrition Risk Comment: Tongue removed R/T CA, drinks boost for nutrition--poor swallowing. Physical Findings Physical Appearance: Underweight for adult>70 yrs, better to have BMI in 25-32 range for older adults Skin Appearance Skin Appearance: Warm,Dry Skin Multiple Pressure Ulcers Edema Edema Location Modifier: Right Edema Location: Upper Extremity Type of Edema: Degree of Edema: 2+ Gastrointestinal Symptoms GI Symtoms: Constipation Tube Present: Bowel Sounds: Recent Bowel Pattern: Constipated Stool Characteristics: Brown, Soft Nutrition/Food History Difficulty Swallowing Pt has had very little po intake since admit 08/03/18 (1 week) Skipped Meals: Yes Nutritional Diagnosis Nutritional Risk Acuity 1: NPO/CL > 3 days, No Appetite Nutritional Risk Acuity 2: V/D > 3 Days Nutritional Risk Acuity 4: %IBW 90-100% Past Medical History: tongue cancer, tongue resection, breast cancer, hypothyroidism Nutritional Acuity: 1-High Nutrition Diagnosis: Inadequate Food Intake Nutrition Etiology: Mechanical/Motor Issues Nutrition Problem/Etiology/Sym: glossectomy, minimal intake reported, poor appetite Energy Requirement: 1516 (MSJ AF1.3) Protein Requirement: 61 (1.2g/kg) Fluid Requirement: 1530 (30-35mL/kg [id number]) Diet Type: NPO (Nothing by Mouth) Nutrition Intervention: Between meal supplement, Nutrition support, Incr diet as tolerated Nutritional Support Recommended Enteral / Parental: Tube Feeding Recommended Tube Feeding Formu: Jevity 1cal/ml-Standard Tube Feeding Supplement Streng: Full Recommended Feeding Route: PEG Recommended Goal Rate: 130mL/hr Recommended Duration: 11 Recommended Feeding Comment: Recommend nocturnal feed for 11 hrs. 115 mL H20 TID to meet fluid needs. Recommended Calories: 1516 (Recalculated energy needs) Recommended Protein: 61 Nutrition Monitoring & Eval RD Patient Assessment Time: [address] Assessment Type: RD Re-Assessment Patient Nutrition Acuity: 1-High Follow Up Date: Aug 10, 2018 Nutritional Comment: Discussed pt with RN. Plan is for a PEG placement. Recalculated energy needs. Recommend Jevity 1.0 a basic EN formula containing fiber since pt has a hx of constipation. Goal rate 130mL/hr x 11 hrs nocturnal via pump. Free water flushes of 115 mL TID to meet fluid requirements. In addition flush 30mL H20 with every medication administration. Enteral nutrition will provide 1,516 kcal, 63 g Protein, 1,194 mL H20 (from fromula), and 20.5 g of fiber. 08/10/18-Reviewed recent charting. Pt to get PEG today. Pt has had very limited PO intake x 7 days, with hx of poor nutrition at home. Wt is up but likely r/t 2+ edema, IV fluids. Recommend inititate EN via PEG when able. Once EN begins will monitor tolerance. NIKI GRIMM Aug 10, 2018 12:30
--- NOTE | 2018-08-10 14:01 | Hospitalist Progress Note ---
Subjective Progress Notes Subjective 88F admitted for constipation. To OR this am for PEG, working on SNU at discharge. Physical Exam Vital Signs Date Time Temp Pulse Resp B/P (MAP) Pulse Ox O2 Delivery O2 Flow Rate FiO2 08/10/18 12:25 90 Oxy Mask 40.0 100.0 08/10/18 12:15 93 18 08/10/18 12:15 98.1 113/52 (72) Intake and Output 08/10/18 07:00 Intake Total 1340 ml Output Total 425 ml Balance 915 ml Intake Oral 240 ml IV Total 1100 ml Output Urine Total 425 ml # Bowel Movements 2 General Appearance: Afebrile Cardiovascular: Normal Rhythm & Peripheral Pulses Respiratory: Other (coarse breathsounds b/l) Result Diagram: 08/10/18 0708/10/18 07 Assessment and Plan Problems: (1) Aspiration pneumonia Status: Acute Assessment & Plan: She did have an aspiration event several days ago. She was started on empiric treatment with IV Unasyn. She does aspirate and is currently NPO. We had discussions regarding the rationale for feeding tube placement. At this point, the patient wishes to pursue PEG tube placement (family is reported to be supportive of this as well). Dr. Almazan placed PEG today. (2) Acute respiratory failure with hypoxia Status: Acute Assessment & Plan: Secondary to aspiration and apparent pneumonia. She has improved clinically. Her echocardiogram shows normal LV function with some mild mitral and aortic regurge with moderate tricuspid regurge. (3) LALA (acute kidney injury) Assessment & Plan: Resolved with IV fluids. (4) Dehydration Status: Acute Assessment & Plan: Improving with IV fluids. (5) Hypothyroidism Status: Chronic Assessment & Plan: She is on chronic treatment with Synthroid, which is currently being given IV. (6) Hyponatremia Status: Chronic Assessment & Plan: Resolved with IV fluids and she has actually become hypernatremic. We have modified her fluids. Will monitor closely. (7) Urinary retention Status: Acute Assessment & Plan: A José catheter has been placed. (8) Constipation Status: Chronic Assessment & Plan: She was disimpacted in the ER. She has been started on a constipation protocol, but her NPO status is limiting. (9) Superficial burn Assessment & Plan: Previously documented as pressure wounds, wound care is seeing. Appear to be healing well. Exam Sepsis Risk: No Definite Risk Problem Qualifiers (1) Aspiration pneumonia: Aspiration pneumonia type: unspecified Laterality: unspecified laterality Lung location: unspecified part of lung Qualified Codes: J69.0 - Pneumonitis due to inhalation of food and vomit FIONA PARKER DO Aug 10, 2018 14:01
--- NOTE | 2018-08-10 14:33 | NUR ---
Physical Therapy Impression Hold PT today due to PEG tube placement and increased O2 demands. Will re-evaluate Pt tomorrow. PT re-eval completed for previously documented skin breakdown. L) posterior thigh dressing remains well intact and was not disrupted. R) scapular area dressing changed due to roll at inferior border. R) ischial tuberosity remains open to air with aggressive off loading of bony prominences to address this site. Pt to reinspect later this week to ensure effectiveness of dressing application. Physical Therapy Goals Patient's Goals
[2018-08-10 15:45] VITALS: BP 113/49
[2018-08-10 19:47] VITALS: BP 104/50
[2018-08-10 23:46] VITALS: BP 102/46
[2018-08-11 04:08] VITALS: BP 102/60
[2018-08-11 07:29] VITALS: BP 102/49
[2018-08-11] MEDS ORDERED: D5 1/2 NS(*) 1000 ML BAG 1,000 ML IV ONE (09:05)
[2018-08-11] MEDS: AMPICILLIN/SULBACT (*) 3 GM VL 3 GM in NS(*) 0.9% 100 ML MINI-BAG 100 ML IVPB SCH ×2 (10:49→21:10)
[2018-08-11] MEDS: ENOXAPARIN 30 MG/0.3 ML SYR SC SCH (10:50)
[2018-08-11 11:30] VITALS: BP 117/33
--- NOTE | 2018-08-11 12:27 | NUR ---
Occupational Therapy Impression Total Ax2 supine to sit and sit to supine. Tolerated sitting EOB [id number] with assistx1-2 to maintain upright seated position. VSS throughout. SpO2 WNL on 5L. Use of communication board to conserve energy and improve communication. Pt reporting no pain at rest, 6/10 seated EOB, 6/10 upon return to supine. Pt declining further needs, reporting comfort at end of tx. Occupational Therapy Goals Patient's Goal
--- NOTE | 2018-08-11 13:13 | Hospitalist Progress Note ---
Subjective Progress Notes Subjective She denies any problems with initiating tube feedings. No abdominal pain. No nausea/vomiting. Physical Exam Vital Signs Date Time Temp Pulse Resp B/P (MAP) Pulse Ox O2 Delivery O2 Flow Rate FiO2 08/11/18 10:38 High-Flow Nasal Cannula 5.0 08/11/18 10:33 95 08/11/18 10:00 100.0 08/11/18 07:29 99.4 81 16 102/49 (66) Intake and Output 08/11/18 07:00 Intake Total 2756 ml Output Total 625 ml Balance 2131 ml IV Total 2636 ml Tube Irrigant 120 ml Output Urine Total 625 ml Drainage Total 0 ml # Bowel Movements 2 Cardiovascular: Regular Rate and Rhythm (with soft systolic/diastolic murmur) Respiratory: Other (few sacttered rhonchi) GI: Other (Soft/BS present) Extremities: Warm, Perfused Result Diagram: 08/10/18 0703 08/10/18 0703 Assessment and Plan Problems: (1) Aspiration pneumonia Status: Acute Assessment & Plan: She did have an aspiration event several days ago. She was started on empiric treatment with IV Unasyn. She does aspirate and is currently NPO. She did have feeding tube placed with Dr. Almazan. Tube feedings have been started and she seems to be tolerating them fairly well. (2) Acute respiratory failure with hypoxia Status: Acute Assessment & Plan: Secondary to aspiration and apparent pneumonia. She has improved clinically. Her echocardiogram shows normal LV function with some mild mitral and aortic regurge with moderate tricuspid regurge. (3) LALA (acute kidney injury) Assessment & Plan: Resolved with IV fluids. (4) Dehydration Status: Acute Assessment & Plan: Improving with IV fluids. (5) Hypothyroidism Status: Chronic Assessment & Plan: She is on chronic treatment with Synthroid. (6) Hyponatremia Status: Chronic Assessment & Plan: Resolved with IV fluids and she has actually become hypernatremic. We have modified her fluids. Will monitor closely. (7) Urinary retention Status: Acute Assessment & Plan: A José catheter has been placed. (8) Constipation Status: Chronic Assessment & Plan: She was disimpacted in the ER. Will see how she responds to tube feedings. May need to start bowel regimen. (9) Superficial burn Assessment & Plan: Previously documented as pressure wounds, wound care is seeing. Appear to be healing well. Exam Sepsis Risk: Sepsis Risk Problem Qualifiers (1) Aspiration pneumonia: Aspiration pneumonia type: unspecified Laterality: unspecified laterality Lung location: unspecified part of lung Qualified Codes: J69.0 - Pneumonitis due to inhalation of food and vomit YOEL ENRIQUEZ MD Aug 11, 2018 13:13
[2018-08-11] MEDS: LEVOTHYROXINE SOD 0.137 MG TAB FT SCH (13:24)
--- NOTE | 2018-08-11 13:50 | NUR ---
Physical Therapy Impression Pt required total A x3 for supine<>sit transfer and tolerated sitting at EOB x approximately 3 minutes with Mod A for support. VSS throughout. Recommend long-term rehab. Physical Therapy Goals Patient's Goals
--- NOTE | 2018-08-11 15:33 | NUR ---
Unsure if airbed was zeroed appropriately when placed in use, unable to use lift to weigh pt, pt unable to stand Addendum: 08/11/18 at 1534 by SOFI CASTRO RN Amended: Links added.
[2018-08-11 18:00] VITALS: BP 111/52
[2018-08-12] MEDS: LEVOTHYROXINE SOD 0.137 MG TAB FT SCH (05:36)
[2018-08-12 06:21] LABS: PLATELET COUNT, AUTOMATED 149 K/uL (150-450)
[2018-08-12 07:15] VITALS: BP 117/53
[2018-08-12] MEDS: ALBUTEROL/IPRATROPIUM 3 ML NEB NEB SCH ×3 (08:30→17:40)
[2018-08-12] MEDS: ACETAMINOPHEN(*)1000 MG/100 ML 100 ML IVPB PRN (08:54)
[2018-08-12] MEDS: ENOXAPARIN 30 MG/0.3 ML SYR SC SCH (08:54)
[2018-08-12] MEDS: AMPICILLIN/SULBACT (*) 3 GM VL 3 GM in NS(*) 0.9% 100 ML MINI-BAG 100 ML IVPB SCH ×2 (08:54→21:17)
--- NOTE | 2018-08-12 09:26 | Hospitalist Progress Note ---
Subjective Progress Notes Subjective She has no complaints this morning. She has a noticeable wet sounding cough upon entrance into the room. Patient Complains of: Cardiovascular: No: Chest Pain Respiratory: Cough, Shortness of Breath Physical Exam Vital Signs Date Time Temp Pulse Resp B/P (MAP) Pulse Ox O2 Delivery O2 Flow Rate FiO2 08/12/18 08:30 93 High-Flow Nasal Cannula 2.5 08/12/18 08:30 88 18 08/12/18 07:15 100.4 117/53 (74) 08/11/18 10:00 100.0 Intake and Output 08/12/18 06:59 Intake Total 1780 ml Output Total 555 ml Balance 1225 ml IV Total 110 ml Tube Feeding 1215 ml Tube Irrigant 455 ml Output Urine Total 550 ml Gastric Drainage Total 5 ml Drainage Total 0 ml General Appearance: Alert, Awake, No Acute Distress, Afebrile Cardiovascular: Regular Rate and Rhythm Respiratory: Other (wet coarse lung sound throughout) GI: Soft and Non-Tender Extremities: Warm, Perfused, Edema (2+pitting edema to bilateral lower extremities, 3+ pitting bilateral upper extremities) Psych: Alert & Oriented X3, Appropriate Mood & Affect Result Diagram: 08/12/18 0553 08/12/18 0553 Assessment and Plan Problems: (1) Aspiration pneumonia Status: Acute Assessment & Plan: She did have an aspiration event several days ago. She was started on empiric treatment with IV Unasyn. She does aspirate and is currently NPO. She did have feeding tube placed with Dr. Almazan. Tube feedings have been started and she seems to be tolerating them fairly well. (2) Acute respiratory failure with hypoxia Status: Acute Assessment & Plan: Secondary to aspiration and apparent pneumonia. She has improved clinically. Her echocardiogram shows normal LV function with some mild mitral and aortic regurge with moderate tricuspid regurge. (3) LALA (acute kidney injury) Assessment & Plan: Resolved with IV fluids. (4) Dehydration Status: Acute Assessment & Plan: Improving with IV fluids. (5) Hypothyroidism Status: Chronic Assessment & Plan: She is on chronic treatment with Synthroid. (6) Hyponatremia Status: Chronic Assessment & Plan: Resolved with IV fluids and she has actually become hypernatremic. We have modified her fluids. Will monitor closely. (7) Urinary retention Status: Acute Assessment & Plan: A José catheter has been placed. (8) Constipation Status: Chronic Assessment & Plan: She was disimpacted in the ER. Will see how she responds to tube feedings. May need to start bowel regimen. (9) Superficial burn Assessment & Plan: Previously documented as pressure wounds, wound care is seeing. Appear to be healing well. Exam Sepsis Risk: No Definite Risk Problem Qualifiers (1) Aspiration pneumonia: Aspiration pneumonia type: unspecified Laterality: unspecified laterality Lung location: unspecified part of lung Qualified Codes: J69.0 - Pneumonitis due to inhalation of food and vomit LOUIS ALLEN Aug 12, 2018 09:26
--- NOTE | 2018-08-12 11:05 | Medical Nutrition Therapy ---
Nutritional Education Nutrition Education Topic: Other (Tube feeding for home) Learning Barriers: Language (limited ability to talk) Learning Readiness: Interested Teaching Methods: Discussion, Demonstration Response to Teaching: Verbalize understanding (nodded understanding, pt gave permission to review with son ) Nutrition Counseling: Reviewed handout on TF for home use. Nutrition Monitoring & Eval RD Patient Assessment Time: [address] Assessment Type: RD Assessment Patient Nutrition Acuity: 1-High Follow Up Date: Aug 10, 2018 Nutritional Comment: Discussed pt with RN. Plan is for a PEG placement. Recalculated energy needs. Recommend Jevity 1.0 a basic EN formula containing fiber since pt has a hx of constipation. Goal rate 130mL/hr x 11 hrs nocturnal via pump. Free water flushes of 115 mL TID to meet fluid requirements. In addition flush 30mL H20 with every medication administration. Enteral nutrition will provide 1,516 kcal, 63 g Protein, 1,194 mL H20 (from fromula), and 20.5 g of fiber. 08/10/18-Reviewed recent charting. Pt to get PEG today. Pt has had very limited PO intake x 7 days, with hx of poor nutrition at home. Wt is up but likely r/t 2+ edema, IV fluids. Recommend inititate EN via PEG when able. Once EN begins will monitor tolerance. TYLER 08/12 Provided eduation on home TF. Will cont to monitor. MARCIE MADRID Aug 12, 2018 11:05
--- NOTE | 2018-08-12 11:52 | Medical Nutrition Therapy ---
Nutrition Anthropometrics Height (Inches): 64.00 Height (Calculated Centimeters: 162.108563 Weight (Pounds): 135 Weight (Calculated Kilograms): 61.235 BMI: 21.1 Jae Nutrition Score: Probably Inadequate Jae Nutrition Risk Score: 12 Dietary Referral Nutrition Risk Factors: Diff. Swallowing Nutrition Risk Comment: Tongue removed R/T CA, drinks boost for nutrition--poor swallowing. Physical Findings Physical Appearance: Underweight for adult>70 yrs, better to have BMI in 25-32 range for older adults Skin Appearance Skin Appearance: Edema Edema Location Modifier: Right Edema Location: Upper Extremity Type of Edema: Degree of Edema: 1+ Gastrointestinal Symptoms GI Symtoms: Constipation Tube Present: PEG, Feeding Bowel Sounds: Recent Bowel Pattern: Constipated Stool Characteristics: Brown, Soft Nutritional Diagnosis Nutritional Risk Acuity 1: NPO/CL > 3 days, No Appetite Nutritional Risk Acuity 2: V/D > 3 Days Nutritional Risk Acuity 4: %IBW 90-100% Past Medical History: tongue cancer, tongue resection, breast cancer, hypothyroidism Nutritional Acuity: 1-High Nutrition Diagnosis: Inadequate Food Intake Nutrition Etiology: Mechanical/Motor Issues Nutrition Problem/Etiology/Sym: glossectomy, minimal intake reported, poor appetite Energy Requirement: 1516 (MSJ AF1.3) Protein Requirement: 61 (1.2g/kg) Fluid Requirement: 1530 (30-35mL/kg [id number]) Diet Type: NPO (Nothing by Mouth) Nutrition Intervention: Between meal supplement, Nutrition support, Incr diet as tolerated Nutritional Support Tube Feeding Supplement Streng: Full Recommended Enteral / Parental: Tube Feeding Recommended Tube Feeding Formu: Jevity 1cal/ml-Standard Tube Feeding Supplement Streng: Full Recommended Feeding Route: PEG Recommended Goal Rate: 130mL/hr Recommended Duration: 11 Recommended Feeding Comment: Recommend nocturnal feed for 11 hrs. 115 mL H20 TID to meet fluid needs. Recommended Calories: 1516 (Recalculated energy needs) Recommended Protein: 61 Nutrition Monitoring & Eval RD Patient Assessment Time: [address] Assessment Type: RD Assessment Patient Nutrition Acuity: 1-High Follow Up Date: Aug 10, 2018 Nutritional Comment: Discussed pt with RN. Plan is for a PEG placement. Recalculated energy needs. Recommend Jevity 1.0 a basic EN formula containing fiber since pt has a hx of constipation. Goal rate 130mL/hr x 11 hrs nocturnal via pump. Free water flushes of 115 mL TID to meet fluid requirements. In addition flush 30mL H20 with every medication administration. Enteral nutrition will provide 1,516 kcal, 63 g Protein, 1,194 mL H20 (from fromula), and 20.5 g of fiber. 08/10/18-Reviewed recent charting. Pt to get PEG today. Pt has had very limited PO intake x 7 days, with hx of poor nutrition at home. Wt is up but likely r/t 2+ edema, IV fluids. Recommend inititate EN via PEG when able. Once EN begins will monitor tolerance. TYLER 08/12 Provided eduation on home TF. Will cont to monitor. BK 08/12/18-Performed malnutrition physical assessment. Recommend diagnosis of moderate malnutrition as evidence by physical assessment. Evidence of muscle loss at the following sites: temporalis, scapula. Evidence of fat loss around orbitals and ribs. TYLER Copies To Copies to: LOUIS ALLEN ; NIKI RAMIREZ Aug 12, 2018 11:51
--- NOTE | 2018-08-12 14:06 | NUR ---
Physical Therapy Impression Pt transferred supine<>sit with max A x2. Pt with improved tolerance to sitting with increased time to approximately 5 minutes and with less assistance, Tamara-CGA. Pt had BM, PT helped with bedding change. Pt was Max A x2 for rolling with minimal effort put forth by patient. Recommend long-term rehab. Physical Therapy Goals Patient's Goals
--- NOTE | 2018-08-12 14:16 | NUR ---
Occupational Therapy Impression Pt engaged in UB ther ex supine in bed with no increase in pain or complaints. Frequent breaks incorporated. VSS throughout. Pt fatigued, requesting to rest. Reporting no further needs at this time. Occupational Therapy Goals Patient's Goal
[2018-08-12 14:52] VITALS: BP 108/44
[2018-08-12 19:48] VITALS: BP 116/49
[2018-08-13 03:43] VITALS: BP 123/50
[2018-08-13] MEDS: ALBUTEROL/IPRATROPIUM 3 ML NEB NEB SCH ×4 (05:29→17:12)
[2018-08-13] MEDS: LEVOTHYROXINE SOD 0.137 MG TAB FT SCH (05:56)
[2018-08-13 06:02] LABS: PLATELET COUNT, AUTOMATED 179 K/uL (150-450)
[2018-08-13 07:03] VITALS: BP 119/71
[2018-08-13] MEDS ORDERED: NS(*) 0.9% 250 ML BAG 250 ML ONE (08:45)
[2018-08-13] MEDS: AMPICILLIN/SULBACT (*) 3 GM VL 3 GM in NS(*) 0.9% 100 ML MINI-BAG 100 ML IVPB SCH ×2 (09:11→20:59)
[2018-08-13] MEDS: ENOXAPARIN 30 MG/0.3 ML SYR SC SCH (09:12)
--- NOTE | 2018-08-13 09:15 | Hospitalist Progress Note ---
Subjective Progress Notes Subjective The patient apparently had an episode of O2 saturation in the face of increased residuals from her TF early this am. Physical Exam Vital Signs Date Time Temp Pulse Resp B/P (MAP) Pulse Ox O2 Delivery O2 Flow Rate FiO2 08/13/18 07:03 97.9 88 24 119/71 (87) 90 Oxy Mask 2.5 08/11/18 10:00 100.0 Intake and Output 08/13/18 07:00 Intake Total 2452 ml Output Total 775 ml Balance 1677 ml IV Total 100 ml Tube Feeding 1917 ml Tube Irrigant 435 ml Output Urine Total 775 ml Drainage Total 0 ml # Bowel Movements 2 General Appearance: Alert, Awake, No Acute Distress Eyes: PERRLA ENT: Other (Tongue is surgically absent.) Cardiovascular: Regular Rate and Rhythm Respiratory: Other (Bronchial BS on the L, entire lung field. L lung with rhonchi anteriorly. R lung with rhonchi anteriorly. Posteriorly fairly clear on R. ) GI: Other (Slightly distended. BS hypoactive.) Extremities: Edema (Significant edema to her abdomen. ) Integumentary: Generalized Fragile Skin Psych: Alert & Oriented X3, Appropriate Mood & Affect Result Diagram: 08/13/1854808/13/18548 Assessment and Plan Problems: (1) Aspiration pneumonia Status: Acute Assessment & Plan: She did have an aspiration event prior to admission and appears to have aspirated again this am when she had a high residual with her tube feedings. She is on empiric treatment with IV Unasyn. She did have feeding tube placed with Dr. Almazan. Tube feedings have been started and she had high residuals overnight so her feedings are being held. Will restart tonight at a lower rate. Her free water has been increased as well due to hypernatremia and increasing BUN. (2) Acute respiratory failure with hypoxia Status: Acute Assessment & Plan: Secondary to aspiration and apparent pneumonia. She had improved clinically but had another aspiration event the am. Her echocardiogram shows normal LV function with some mild mitral and aortic regurge with moderate tricuspid regurge. (3) LALA (acute kidney injury) Assessment & Plan: Improved with IV fluids. (4) Dehydration Status: Acute Assessment & Plan: Improving with tube feeding. Free water was increased today. (5) Hypothyroidism Status: Chronic Assessment & Plan: She is on chronic treatment with Synthroid. TSH was WNL. (6) Hyponatremia Status: Chronic Assessment & Plan: Resolved with IV fluids and she has actually become hypernatremic. We have modified her free fluids with her TF. Will monitor closely. (7) Urinary retention Status: Acute Assessment & Plan: A José catheter has been placed. (8) Constipation Status: Chronic Assessment & Plan: She was disimpacted in the ER. Will see how she responds to tube feedings. May need to start bowel regimen. (9) Superficial burn Assessment & Plan: Previously documented as pressure wounds, wound care is seeing. Appear to be healing well. (10) Malnutrition Status: Chronic Assessment & Plan: A prealbumin has been ordered. Now on TF diet. She has significant edema likely due to low albumin. Time Spent on Plan of Care: < 30 min Exam Sepsis Risk: No Definite Risk Problem Qualifiers (1) Aspiration pneumonia: Aspiration pneumonia type: unspecified Laterality: unspecified laterality Lung location: unspecified part of lung Qualified Codes: J69.0 - Pneumonitis due to inhalation of food and vomit (2) Malnutrition: Malnutrition type: protein-calorie malnutrition YAMILA ENRIQUEZ MD Aug 13, 2018 09:15
[2018-08-13 10:46] VITALS: BP 111/46
--- NOTE | 2018-08-13 12:37 | NUR ---
Physical Therapy Impression Pt participated in supine ther ex in order to increase strength for functional tasks. Recommend long-term rehab. Physical Therapy Goals Patient's Goals
[2018-08-13 14:38] VITALS: BP 115/43
[2018-08-13 14:39] VITALS: BP 115/43
[2018-08-13] MEDS: ACETAMINOPHEN ADULT 160 MG/5ML 160 MG/5 ML UDBTL PO PRN (14:46)
[2018-08-13 20:45] VITALS: BP 109/46
[2018-08-14 04:15] VITALS: BP 116/51
[2018-08-14] MEDS: LEVOTHYROXINE SOD 0.137 MG TAB FT SCH (05:34)
[2018-08-14 05:36] LABS: PLATELET COUNT, AUTOMATED 149 K/uL (150-450)
[2018-08-14] MEDS: ALBUTEROL/IPRATROPIUM 3 ML NEB NEB SCH ×4 (05:47→18:06)
[2018-08-14 08:18] VITALS: BP 119/49
[2018-08-14] MEDS: AMPICILLIN/SULBACT (*) 3 GM VL 3 GM in NS(*) 0.9% 100 ML MINI-BAG 100 ML IVPB SCH ×2 (09:17→20:35)
[2018-08-14] MEDS: ACETAMINOPHEN ADULT 160 MG/5ML 160 MG/5 ML UDBTL PO PRN (09:17)
[2018-08-14] MEDS: ENOXAPARIN 30 MG/0.3 ML SYR SC SCH (09:17)
[2018-08-14 11:40] VITALS: BP 113/48
--- NOTE | 2018-08-14 12:10 | Hospitalist Progress Note ---
Subjective Progress Notes Subjective No concerns from staff. Patient report no pain or nausea. Physical Exam Vital Signs Date Time Temp Pulse Resp B/P (MAP) Pulse Ox O2 Delivery O2 Flow Rate FiO2 08/14/18 11:40 99.2 83 22 113/48 (69) 93 High-Flow Nasal Cannula 4.0 08/13/18 20:45 100.0 Intake and Output 08/14/18 07:00 Intake Total 1733 ml Output Total 725 ml Balance 1008 ml IV Total 213 ml Tube Feeding 590 ml Tube Irrigant 930 ml Output Urine Total 725 ml Drainage Total 0 ml General Appearance: Alert, Awake, No Acute Distress Respiratory: Clear to Auscultation GI: Soft and Non-Tender (PEG tube site without erythema) Result Diagram: 08/14/1852308/14/18523 Assessment and Plan Problems: (1) Aspiration pneumonia Status: Acute Assessment & Plan: She did have an aspiration event prior to admission and appears to have aspirated again when she had a high residual with her tube feedings. She is on empiric treatment with IV Unasyn. She did have feeding tube placed with Dr. Almazan. Her free water has been increased as well due to hypernatremia and increasing BUN. (2) Hypernatremia Status: Acute Assessment & Plan: Improving with addition of FW to TF. Will follow. (3) Acute respiratory failure with hypoxia Status: Acute Assessment & Plan: Secondary to aspiration and apparent pneumonia. She had improved clinically but had another aspiration on 08/13. Her echocardiogram shows normal LV function with some mild mitral and aortic regurge with moderate tr icuspid regurge. (4) LALA (acute kidney injury) Assessment & Plan: Improved with IV fluids. (5) Dehydration Status: Acute Assessment & Plan: Improving with tube feeding. Free water was increased today. (6) Hypothyroidism Status: Chronic Assessment & Plan: She is on chronic treatment with Synthroid. TSH was WNL. (7) Hyponatremia Status: Resolved Assessment & Plan: Resolved with IV fluids and she has actually become hypernatremic. We have modified her free fluids with her TF. Will monitor closely. (8) Urinary retention Status: Acute Assessment & Plan: A José catheter has been placed. (9) Constipation Status: Chronic Assessment & Plan: She was disimpacted in the ER. Will see how she responds to tube feedings. Miralax started. (10) Superficial burn Assessment & Plan: Previously documented as pressure wounds, wound care is seeing. Appear to be healing well. (11) Malnutrition Status: Chronic Assessment & Plan: A prealbumin has been ordered. Now on TF diet. She has significant edema likely due to low albumin. Exam Sepsis Risk: No Definite Risk Problem Qualifiers (1) Aspiration pneumonia: Aspiration pneumonia type: unspecified Laterality: unspecified laterality Lung location: unspecified part of lung Qualified Codes: J69.0 - Pneumonitis due to inhalation of food and vomit (2) Malnutrition: Malnutrition type: protein-calorie malnutrition LASHELL KELLEY MD Aug 14, 2018 12:10
[2018-08-14 12:16] LABS: PLATELET COUNT, AUTOMATED 166 K/uL (150-450)
--- NOTE | 2018-08-14 12:18 | Medical Nutrition Therapy ---
Nutrition Anthropometrics Height (Inches): 64.00 Height (Calculated Centimeters: 162.485899 Weight (Pounds): 134 Weight (Calculated Kilograms): 60.866 BMI: 21.1 Jae Nutrition Score: Probably Inadequate Jae Nutrition Risk Score: 14 Dietary Referral Nutrition Risk Factors: Diff. Swallowing Nutrition Risk Comment: Tongue removed R/T CA, drinks boost for nutrition--poor swallowing. Physical Findings Physical Appearance: Underweight for adult>70 yrs, better to have BMI in 25-32 range for older adults Skin Appearance Skin Appearance: Edema Edema Location Modifier: Right Edema Location: Upper Extremity Type of Edema: Degree of Edema: 1+ Gastrointestinal Symptoms GI Symtoms: Constipation Tube Present: PEG, Feeding Bowel Sounds: Recent Bowel Pattern: Constipated Stool Characteristics: Brown, Soft Nutritional Diagnosis Nutritional Risk Acuity 1: No Appetite, Tube Feed Unstable Nutritional Risk Acuity 4: %IBW 90-100% Past Medical History: tongue cancer, tongue resection, breast cancer, hypothyroidism Nutritional Acuity: 1-High Nutrition Diagnosis: Inadequate Food Intake Nutrition Etiology: Mechanical/Motor Issues Nutrition Problem/Etiology/Sym: glossectomy, minimal intake reported, poor appetite Energy Requirement: 1516 (MSJ AF1.3) Protein Requirement: 61 (1.2g/kg) Fluid Requirement: 1530 (30-35mL/kg 1453-7910) Diet Type: Tube Feeding (TF) Nutrition Intervention: Cont diet as ordered, Nutrition support, Incr diet as tolerated Nutritional Support Tube Feeding Formulas: Jevity 1cal/ml-Standard Current Tube Feeding Formula C: 130ML/HR x 11 HRS Tube Feeding Supplement Streng: Full Feeding Route: PEG Current Duration: 11 Current Calories: 1516 Current Protein: 61 Free H2O bolus for hydration (: 200 ML x 4/24 HRS Nutrition Monitoring & Eval Nutritional Goals Comment: TF will meet nutr needs RD Patient Assessment Time: [address] Assessment Type: RD Assessment Patient Nutrition Acuity: 1-High Follow Up Date: Aug 17, 2018 Nutritional Comment: Discussed pt with RN. Plan is for a PEG placement. Recalculated energy needs. Recommend Jevity 1.0 a basic EN formula containing fiber since pt has a hx of constipation. Goal rate 130mL/hr x 11 hrs nocturnal via pump. Free water flushes of 115 mL TID to meet fluid requirements. In addition flush 30mL H20 with every medication administration. Enteral nutrition will provide 1,516 kcal, 63 g Protein, 1,194 mL H20 (from fromula), and 20.5 g of fiber. 08/10/18-Reviewed recent charting. Pt to get PEG today. Pt has had very limited PO intake x 7 days, with hx of poor nutrition at home. Wt is up but likely r/t 2+ edema, IV fluids. Recommend inititate EN via PEG when able. Once EN begins will monitor tolerance. TYLER 08/12 Provided eduation on home TF. Will cont to monitor. FREDDIE 08/12/18-Performed malnutrition physical assessment. Recommend diagnosis of moderate malnutrition as evidence by physical assessment. Evidence of muscle loss at the following sites: temporalis, scapula. Evidence of fat loss around orbitals and ribs. TYLER 08/14 Pt cont TF 130ml/ 11hrs. Pt tolerating TF fair with occasional high residuals. Alb low at 1.9. Pt has 2+ BLE edema and 1+ RtUE. Pt pending prealbumin. Pt has Mg 1.9, K+ 3.8 both WNR indicating no refeeding syndrom at this time. Will cont to monitor. MARCIE MADRID Aug 14, 2018 12:18
--- NOTE | 2018-08-14 12:28 | Miscellaneous Provider Note ---
Miscellaneous Provider Note Note Item Value Date Time Hemoglobin 10.8 g/dL L 08/13/18 0549 Hemoglobin 8.7 g/dL *L 08/14/18 0524 Hemoglobin 8.6 g/dL *L 08/14/18 1210 Some dark liquid seen on residual check. Hgb dropped. Stopping Lovenox, but got it this morning. Check for occult blood in stool. Starting IV Protonix. BP/P stable. LASHELL KELLEY MD Aug 14, 2018 12:28
[2018-08-14] MEDS: PANTOPRAZOLE SOD 40 MG IV VIAL IVP SCH ×2 (13:08→20:34)
[2018-08-14] MEDS: POLYETHYLENE GLYCOL 17 GM PKT PO SCH (13:08)
[2018-08-14 15:17] VITALS: BP 119/48
[2018-08-14 20:00] VITALS: BP 120/53
[2018-08-14 23:28] VITALS: BP 114/47
[2018-08-15 04:30] VITALS: BP 120/54
[2018-08-15] MEDS: ALBUTEROL/IPRATROPIUM 3 ML NEB NEB SCH ×4 (05:40→17:10)
[2018-08-15] MEDS: LEVOTHYROXINE SOD 0.137 MG TAB FT SCH (05:53)
[2018-08-15 06:15] LABS: PLATELET COUNT, AUTOMATED 184 K/uL (150-450)
[2018-08-15] MEDS: PANTOPRAZOLE SOD 40 MG IV VIAL IVP SCH ×2 (10:10→21:11)
[2018-08-15] MEDS: POLYETHYLENE GLYCOL 17 GM PKT PO SCH (10:11)
--- NOTE | 2018-08-15 10:38 | Hospitalist Progress Note ---
Subjective Progress Notes Subjective This patient was admitted for aspiration. She had no acute events overnight. Patient Complains of: Cardiovascular: No: Chest Pain Respiratory: No: Shortness of Breath Physical Exam Vital Signs Date Time Temp Pulse Resp B/P (MAP) Pulse Ox O2 Delivery O2 Flow Rate FiO2 08/15/18 09:51 78 20 08/15/18 09:43 95 High-Flow Nasal Cannula 2.0 08/15/18 04:30 120/54 (76) 08/14/18 23:28 98.4 08/13/18 20:45 100.0 Intake and Output 08/15/18 07:00 Intake Total 2763 ml Output Total 850 ml Balance 1913 ml IV Total 122 ml Tube Feeding 1521 ml Tube Irrigant 1120 ml Output Urine Total 850 ml Drainage Total 0 ml Cardiovascular: Regular Rate and Rhythm Respiratory: Clear to Auscultation Result Diagram: 08/15/1852708/15/18527 Assessment and Plan Problems: (1) Aspiration pneumonia Status: Acute Assessment & Plan: She has completed a full course of Unasyn. (2) Hypernatremia Status: Acute Assessment & Plan: Free water is now being administered through her feeding tube. (3) Acute respiratory failure with hypoxia Status: Acute Assessment & Plan: Secondary to aspiration and apparent pneumonia. She had improved clinically but had another aspiration on 08/13. Her echocardiogram shows normal LV function with some mild mitral and aortic regurge with moderate tricuspid regurge. (4) LALA (acute kidney injury) Assessment & Plan: Improved with IV fluids. (5) Dehydration Status: Acute Assessment & Plan: Improving with tube feeding. Free water was increased today. (6) Hypothyroidism Status: Chronic Assessment & Plan: She is on chronic treatment with Synthroid. TSH was WNL. (7) Hyponatremia Status: Resolved Assessment & Plan: Resolved with IV fluids and she has actually become hypernatremic. We have modified her free fluids with her TF. Will monitor closely. (8) Urinary retention Status: Acute Assessment & Plan: A José catheter has been placed. (9) Constipation Status: Chronic Assessment & Plan: She was disimpacted in the ER. Will see how she responds to tube feedings. Miralax started. (10) Superficial burn Assessment & Plan: Previously documented as pressure wounds, wound care is seeing. Appear to be healing well. (11) Malnutrition Status: Chronic Assessment & Plan: A prealbumin has been ordered. Now on TF diet. She has significant edema likely due to low albumin. Exam Sepsis Risk: No Definite Risk Problem Qualifiers (1) Aspiration pneumonia: Aspiration pneumonia type: unspecified Laterality: unspecified laterality Lung location: unspecified part of lung Qualified Codes: J69.0 - Pneumonitis due to inhalation of food and vomit (2) Malnutrition: Malnutrition type: protein-calorie malnutrition BOOKER BUCIO DO Aug 15, 2018 10:38
[2018-08-15 11:19] VITALS: BP 130/55
--- NOTE | 2018-08-15 13:18 | NUR ---
PHYSICAL THERAPY INFORMATION TRANSFER SHEET BED MOBILITY: Maximum Assistance 2 person assist Verbalizes Needs: Yes Understands Directions Yes Cooperative: Yes Family Teaching: No Physical Therapy Comment:
--- NOTE | 2018-08-15 14:19 | NUR ---
Physical Therapy Impression Pt initially agreeable to supine ther ex but was only able to complete ankle pumps and a few short arc quads. Pt with multiple coughs during PT session. Pt appears tired and agreeable to stopping therapy for today. Pt will benefit from additional PT to increase strength and tolerance to functional mobility.
--- NOTE | 2018-08-15 15:04 | NUR ---
Occupational Therapy Impression Supine UB ther ex. Also, incorporating functional task of writing and use of communication board with bilateral UEs. Pt declining further needs or intervention at this time. Occupational Therapy Goals Patient's Goal
[2018-08-15 15:44] VITALS: BP 121/54
--- NOTE | 2018-08-15 15:44 | SPEECH INITIAL EVALUATION ---
INITIAL SPEECH THERAPY EVALUATION REPORT Cognitive Communication Assessment Patient Name: Deny Mckenzie Ordering Provider: Hospitalist Date of Evaluation: 08-15-18 Patient : 1930, 88yo Clinician: Mary Alice Godoy M.S., CCC-[facility] Treatment Dx: moderate cognitive linguistic deficits. BACKGROUND The patient is a 88-year old female who lives in [place] with her son and [id number]. She was seen earlier this admittance by ST for a swallowing assessment. It was recommended she be NPO and a feeding tube has now been placed. An ST consult for cognitive communication assessment is now requested. 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 Verbal communication is significantly impaired as intelligibility is low, approximately 30%. Written communication is more successful but grapheme formation is slow and not always legible. Grapheme selection via alphabet board also demonstrates limited successes d/t significantly delayed rate of message transfer and patient selection errors. Primary Medical Diagnosis: aspiration pneumonia Past Medical Hx: cancer, history of dysphagia, glossectomy Pain Scale (0-10): patient w/ no reports of pain. LOC / Participation: alert, cooperative Motor Speech: significantly impaired d/t glossectomy Voice: wet and gurgly, with wet cough Dysphagia: NPO, tube feeding COGNITIVE LINGUISTIC ASSESSMENT Pt was seen at the bedside for cognitive linguistic analysis using the Nicholas Cognitive Assessment, (Version 7.3) paired with informal evaluation procedures. The patients son was present for a portion of the assessment. Modifications of test presentation were made as needed d/t patients speech production deficits resulting in low intelligibility. Modifications included providing written multiple choice options, allowing patient to respond in writing as well as verbally, and providing clinician repetition of patients verbal responses to allow her to confirm accuracy of message transfer. The patient obtained a score of 14/30 (>26/30=WNL) on the MOCA, exhibiting moderate cognitive-linguistic deficits. Affected domains include visuospatial, short-term and delayed recall, and executive function. Relative areas of strength were noted in attention, naming, and language. The pt was oriented to location, general situation, and self/caregivers. She demonstrated partial temporal orientation and provided the correct month but reported the current year as 1994 even following clinician cuing. Relatively strong attention skills positively impacted her ability to ignore competing environmental stimuli and initiate/persist throughout task completion. The patients ability to follow instructions for the test items was notably impaired and impacted performance on individual MOCA tasks and overall score. For instance, when asked to select 5 pre-practiced words from a list of 10, the patient pointed to every word on the list. This did not improve with repetition of the instructions or brief demonstrations. She did not demonstrate awareness of errors during formal or informal testing. SUMMARY At this time, the patient appears to be functioning with moderate cognitive deficits. This severity of cognitive deficit is frequently associated with a decreased capacity for decision-making. Components related to decision making demonstrating relative strength include appreciation and reasoning. Components of decision making demonstrating deficit include understanding and communication. Specific to this patient, decision making related to complex medical decisions may be impacted. However, during informal interview, the patient endorsed that she was not yet ready to DC from inpatient but that she would like to go to [facility] when medically appropriate. RECOMMENDATIONS 1. No ST at this time: pt at OF per family 2. Close supervision at discharge. Patient may benefit initially from level of care/supervision available at [facility] Thank you for this referral. Please call [phone] with any questions or concerns. Mary Alice Godoy M.S., CCC-[facility]
[2018-08-15 19:32] VITALS: BP 106/44
[2018-08-15 23:45] VITALS: BP 108/48
[2018-08-16 04:30] VITALS: BP 123/55
[2018-08-16] MEDS: LEVOTHYROXINE SOD 0.137 MG TAB FT SCH (05:34)
[2018-08-16] MEDS: ALBUTEROL/IPRATROPIUM 3 ML NEB NEB SCH ×4 (05:45→17:38)
[2018-08-16 07:03] VITALS: BP 129/63
[2018-08-16] MEDS: POLYETHYLENE GLYCOL 17 GM PKT PO SCH (09:17)
[2018-08-16] MEDS: PANTOPRAZOLE SODIUM 40 MG FT SCH (09:29)
--- NOTE | 2018-08-16 10:43 | Hospitalist Progress Note ---
Subjective Progress Notes Subjective She denies pain or nausea. She is having 120cc of residual during the night with the TF. No reports of aspiration events. Physical Exam Vital Signs Date Time Temp Pulse Resp B/P (MAP) Pulse Ox O2 Delivery O2 Flow Rate FiO2 08/16/18 09:26 76 18 08/16/18 09:20 95 High-Flow Nasal Cannula 3.5 08/16/18 07:03 98.4 129/63 (85) 08/13/18 20:45 100.0 Intake and Output 08/16/18 07:00 Intake Total 1108 ml Output Total 675 ml Balance 433 ml Tube Feeding 648 ml Tube Irrigant 460 ml Output Urine Total 675 ml Drainage Total 0 ml # Bowel Movements 1 General Appearance: Alert, Awake, No Acute Distress GI: Soft and Non-Tender (No erythema around PEG tube.) Result Diagram: 08/15/1852708/15/18527 Assessment and Plan Problems: (1) Aspiration pneumonia Status: Acute Assessment & Plan: She did have an aspiration event prior to admission and appears to have aspirated again when she had a high residual with her tube feedings. She did have feeding tube placed with Dr. Almazan. Afebrile. Normal WBC. She has completed a full course of Unasyn. (2) Malnutrition Status: Chronic Assessment & Plan: Secondary to poor intake. Very weak and not able to go home. Now on TF diet during the night. Borderline high residuals. She has significant edema likely due to low albumin. A prealbumin has been ordered to establish a baseline. (3) Anemia Status: Acute Assessment & Plan: Some dark liquid seen on a residual check. Heme positive s tool Hgb dropped. Stopped Lovenox. Check for occult blood in stool. Started Protonix. BP/P stable. Hgb stable. (4) Hypernatremia Status: Acute Assessment & Plan: Improving with addition of FW to TF. Will follow. (5) Acute respiratory failure with hypoxia Status: Acute Assessment & Plan: Secondary to aspiration and apparent pneumonia. She had improved clinically but had another aspiration on 08/13. Her echocardiogram shows normal LV function with some mild mitral and aortic regurge with moderate tricuspid regurge. (6) LALA (acute kidney injury) Assessment & Plan: Improved with IV fluids. (7) Dehydration Status: Acute Assessment & Plan: Improving with tube feeding. Free water was increased today. (8) Hypothyroidism Status: Chronic Assessment & Plan: She is on chronic treatment with Synthroid. TSH was WNL. (9) Hyponatremia Status: Resolved Assessment & Plan: Resolved with IV fluids and she has actually become hy pernatremic. We have modified her free fluids with her TF. Will monitor closely. (10) Urinary retention Status: Acute Assessment & Plan: A José catheter has been placed. (11) Constipation Status: Chronic Assessment & Plan: She was disimpacted in the ER. Will see how she responds to tube feedings. Miralax started. BM this morning. (12) Superficial burn Assessment & Plan: Previously documented as pressure wounds, wound care is seeing. Appear to be healing well. Exam Sepsis Risk: No Definite Risk Problem Qualifiers (1) Aspiration pneumonia: Aspiration pneumonia type: unspecified Laterality: unspecified laterality Lung location: unspecified part of lung Qualified Codes: J69.0 - Pneumonitis due to inhalation of food and vomit (2) Malnutrition: Malnutrition type: protein-calorie malnutrition (3) Anemia: Anemia type: unspecified type Qualified Codes: D64.9 - Anemia, unspecified LASHELL KELLEY MD Aug 16, 2018 10:43
--- NOTE | 2018-08-16 15:11 | NUR ---
Occupational Therapy Impression Supine UB ther ex AROM/AAROM. Total Ax2 bed mobility supine to sit and sit to supine. Total Ax2 supine to sit and sit to supine. Tolerated sitting EOB [id number] with Max Ax1-2 to maintain upright seated position. Total Ax1 ramin-care supine in bed. VSS throughout. Recommend long-term rehab. Occupational Therapy Goals Patient's Goal
[2018-08-16 15:17] VITALS: BP 127/55
[2018-08-16 18:59] VITALS: BP 118/49
[2018-08-16 23:10] VITALS: BP 114/43
[2018-08-17 04:18] VITALS: BP 112/52
[2018-08-17] MEDS: ALBUTEROL/IPRATROPIUM 3 ML NEB NEB SCH ×4 (05:38→17:53)
[2018-08-17] MEDS: LEVOTHYROXINE SOD 0.137 MG TAB FT SCH (06:04)
[2018-08-17 06:22] LABS: PLATELET COUNT, AUTOMATED 211 K/uL (150-450)
[2018-08-17 06:53] VITALS: BP 125/53
[2018-08-17] MEDS: NYSTATIN 100,000 U/GM PWD 15GM TP SCH ×2 (09:57→20:23)
[2018-08-17] MEDS: PANTOPRAZOLE SODIUM 40 MG FT SCH (09:58)
[2018-08-17] MEDS: POLYETHYLENE GLYCOL 17 GM PKT PO SCH (09:58)
--- NOTE | 2018-08-17 10:14 | Hospitalist Progress Note ---
Subjective Progress Notes Subjective She has been having fairly large residuals and abdominal distension with her tube feedings. Physical Exam Vital Signs Date Time Temp Pulse Resp B/P (MAP) Pulse Ox O2 Delivery O2 Flow Rate FiO2 08/17/18 09:41 79 18 08/17/18 09:34 97 Oxy Mask 5.0 08/17/18 06:53 97.0 125/53 (77) 08/13/18 20:45 100.0 Intake and Output 08/17/18 07:00 Intake Total 1466 ml Output Total 625 ml Balance 841 ml Tube Feeding 786 ml Tube Irrigant 680 ml Output Urine Total 625 ml Drainage Total 0 ml # Bowel Movements 2 General Appearance: Alert, Awake ENT: Other (surgical/radiation changes) Respiratory: Other (coarse upper airway breath sounds/diffuse rhonchi, but cleared/improved with suctioning secretions) GI: Other (Soft/slightly distended/BS present/PEG tube site looks good) Extremities: Warm, Perfused, Edema Result Diagram: 08/17/1855508/17/18555 Assessment and Plan Problems: (1) Aspiration pneumonia Status: Acute Assessment & Plan: She did have an aspiration event prior to admission and appears to have aspirated again when she had a high residual with her tube feedings. She did have feeding tube placed with Dr. Almazan. Afebrile. Normal WBC. She has completed a full course of Unasyn. (2) Malnutrition Status: Chronic Assessment & Plan: Secondary to poor intake. Very weak and not able to go home. She is now on TF diet during the night, but having high residuals. Will transition to tube feedings 24hrs a day so we can reduce rate and she will have better toleration of the feedings. She has significant edema likely due to low albumin. A prealbumin has been ordered to establish a baseline. (3) Anemia Status: Acute Assessment & Plan: Most likely due to some blood loss from PEG tube placement vs. PUD/gastritis. Some dark liquid seen on a residual check. Heme positive stool and Hgb/Hct dropped. We have stopped Lovenox and started Protonix. BP/P stable. Hgb/Hct now stable. Monitor closely. (4) Hypernatremia Status: Acute Assessment & Plan: Improving with addition of free water to TF. Will follow. (5) Acute respiratory failure with hypoxia Status: Acute Assessment & Plan: Secondary to aspiration and apparent pneumonia. She had improved clinically, but had another aspiration on 08/13/18. Her echocardiogram shows normal LV function with some mild mitral and aortic regurge with moderate tricuspid regurge. (6) LALA (acute kidney injury) Assessment & Plan: Improved with IV fluids. (7) Dehydration Status: Acute Assessment & Plan: Improved with tube feeding/free water. (8) Hypothyroidism Status: Chronic Assessment & Plan: She is on chronic treatment with Synthroid. TSH was WNL. (9) Hyponatremia Status: Resolved Assessment & Plan: Resolved with IV fluids and she had actually become hypernatremic. We have modified her free fluids with her TF. Will monitor closely. (10) Urinary retention Status: Acute Assessment & Plan: A José catheter was placed. Will remove today and do a trial of voiding. (11) Constipation Status: Chronic Assessment & Plan: She was disimpacted in the ER. Will see how she responds to tube feedings. Miralax started. Having BMs. (12) Superficial burn Assessment & Plan: Previously documented as pressure wounds, wound care is seeing. Appear to be healing well. Exam Sepsis Risk: No Definite Risk Problem Qualifiers (1) Aspiration pneumonia: Aspiration pneumonia type: unspecified Laterality: unspecified laterality Lung location: unspecified part of lung Qualified Codes: J69.0 - Pneumonitis due to inhalation of food and vomit (2) Malnutrition: Malnutrition type: protein-calorie malnutrition (3) Anemia: Anemia type: unspecified type Qualified Codes: D64.9 - Anemia, unspecified YOEL ENRIQUEZ MD Aug 17, 2018 10:14
[2018-08-17 10:37] VITALS: BP 113/45
--- NOTE | 2018-08-17 13:01 | Medical Nutrition Therapy ---
Nutrition Anthropometrics Height (Inches): 64.00 Height (Calculated Centimeters: 162.455561 Weight (Pounds): 133 (Pt has 2+ Pitting edema BLE, 1+ RUE) Weight (Calculated Kilograms): 60.526 BMI: 21.1 Jae Nutrition Score: Probably Inadequate Jae Nutrition Risk Score: 13 Dietary Referral Nutrition Risk Factors: Diff. Swallowing Nutrition Risk Comment: Tongue removed R/T CA, drinks boost for nutrition--poor swallowing. Physical Findings Physical Appearance: Underweight for adult>70 yrs, better to have BMI in 25-32 range for older adults Skin Appearance Skin Appearance: Has Pressure Ulcers Left Posterior Thigh and R Scapula Edema Edema Location Modifier: Right Edema Location: Upper Extremity Type of Edema: Degree of Edema: 1+ Gastrointestinal Symptoms GI Symtoms: Appetite Changes Tube Present: PEG, Feeding Bowel Sounds: Recent Bowel Pattern: Constipated Stool Characteristics: Brown, Soft Nutritional Diagnosis Nutritional Risk Acuity 1: No Appetite, Tube Feed Unstable Nutritional Risk Acuity 4: %IBW 90-100% Past Medical History: tongue cancer, tongue resection, breast cancer, hypothyroidism Nutritional Acuity: 1-High Nutrition Diagnosis: Inadequate Food Intake, Increased Nutrient Needs Nutrition Etiology: Psychological Issues, Physiological Causes, Mechanical/Motor Issues Nutrition Problem/Etiology/Sym: two pressure ulcers Energy Requirement: 1803 (MSJ AF1.5 Using UBW of 51 kg) Protein Requirement: 61 (1.4g/kg UBW of 51 kg) Fluid Requirement: 1530 (30-35mL/kg 8792-2503) Diet Type: Tube Feeding (TF) Nutrition Intervention: Cont diet as ordered, Nutrition support, Incr diet as tolerated Nutritional Support Tube Feeding Formulas: Jevity 1cal/ml-Standard Current Tube Feeding Formula C: 130ML/HR x 11 HRS Tube Feeding Supplement Streng: Full Feeding Route: PEG Current Duration: 11 Current Calories: 1516 Current Protein: 61 Free H2O bolus for hydration (: 200 ML x 4/24 HRS Recommended Enteral / Parental: Tube Feeding Recommended Tube Feeding Formu: Jevity 1cal/ml-Standard, Osmolite 1cal/ml- Isotonic Tube Feeding Supplement Streng: Full Recommended Feeding Route: PEG Recommended Rate: 71mL/hr x 24 hrs Recommended Goal Rate: 71 mL/hr x 24 hrs Recommended Duration: 24 Recommended Calories: 1806 Recommended Protein: 75 Recommended Lipids Calories: 59 Total Recommended Calories: 1806 Nutrition Monitoring & Eval Nutrition Monitoring: Monitor tolerance to EN. Check BG and residuals. Monitor wound healing and need for additional protein. Expect some weight loss as pt has BLE 2+ pitting edema BLE and 1+ RUE. Usual wt appears to be 112 lbs as evidenced by previous visit with no edema. RD Patient Assessment Time: [address] Assessment Type: Nutrition Support Consult Patient Nutrition Acuity: 1-High Follow Up Date: Aug 19, 2018 Nutritional Comment: Discussed pt with RN. Plan is for a PEG placement. Recalculated energy needs. Recommend Jevity 1.0 a basic EN formula containing fiber since pt has a hx of constipation. Goal rate 130mL/hr x 11 hrs nocturnal via pump. Free water flushes of 115 mL TID to meet fluid requirements. In addition flush 30mL H20 with every medication administration. Enteral nutrition will provide 1,516 kcal, 63 g Protein, 1,194 mL H20 (from fromula), and 20.5 g of fiber. 08/10/18-Reviewed recent charting. Pt to get PEG today. Pt has had very limited PO intake x 7 days, with hx of poor nutrition at home. Wt is up but likely r/t 2+ edema, IV fluids. Recommend inititate EN via PEG when able. Once EN begins will monitor tolerance. TYLER 08/12 Provided eduation on home TF. Will cont to monitor. FREDDIE 08/12/18-Performed malnutrition physical assessment. Recommend diagnosis of moderate malnutrition as evidence by physical assessment. Evidence of muscle loss at the following sites: temporalis, scapula. Evidence of fat loss around orbitals and ribs. TYLER 08/14 Pt cont TF 130ml/ 11hrs. Pt tolerating TF fair with occasional high residuals. Alb low at 1.9. Pt has 2+ BLE edema and 1+ RtUE. Pt pending prealbumin. Pt has Mg 1.9, K+ 3.8 both WNR indicating no refeeding syndrom at this time. Will cont to monitor. FREDDIE 08/17/18-Reviewed pt charting. Discussed pt in nutrition support rounds. Discussed with Dr. Mason switched EN to 24 hrs duration 60mL/hr to promote tolerance/clearance. Pt was having modest residuals. Recalculated pt energy needs to promote healing of pressure ulcers and weight gain. Estimated needs ~1806 with 75g Protein using usual body of 51 kg. Recommend 71 mL/hr x 24 hrs. Will continue to monitor and reassess Wednesday.NIKI GRIMM Aug 17, 2018 12:48
[2018-08-17 14:05] VITALS: BP 124/48
[2018-08-17 20:21] VITALS: BP 115/47
[2018-08-17 22:53] VITALS: BP 111/47
[2018-08-18 03:33] VITALS: BP 101/42
[2018-08-18] MEDS: ALBUTEROL/IPRATROPIUM 3 ML NEB NEB SCH ×4 (05:44→17:44)
[2018-08-18] MEDS: LEVOTHYROXINE SOD 0.137 MG TAB FT SCH (06:02)
[2018-08-18 07:30] VITALS: BP 114/47
[2018-08-18] MEDS: BISACODYL 10 MG SUPP PR PRN (10:01)
[2018-08-18] MEDS: POLYETHYLENE GLYCOL 17 GM PKT PO SCH ×2 (10:01→21:01)
[2018-08-18] MEDS: PANTOPRAZOLE SODIUM 40 MG FT SCH (10:01)
[2018-08-18] MEDS: NYSTATIN 100,000 U/GM PWD 15GM TP SCH ×2 (10:02→21:01)
--- NOTE | 2018-08-18 10:53 | NUR ---
Occupational Therapy Impression Supine UB ther ex AROM/AAROM. Max A grooming seated upright supported in bed. Recommend long-term rehab. Occupational Therapy Goals Patient's Goal
[2018-08-18 11:47] VITALS: BP 118/44
--- NOTE | 2018-08-18 11:52 | Hospitalist Progress Note ---
Subjective Progress Notes Subjective VERONICA overnight, tolerating continuous TF well. She is retaining urine and will need catheterization. Patient Complains of: Cardiovascular: No: Chest Pain Respiratory: Cough Gastrointestinal: No Nausea, No Vomiting Physical Exam Vital Signs Date Time Temp Pulse Resp B/P (MAP) Pulse Ox O2 Delivery O2 Flow Rate FiO2 08/18/18 11:47 97.4 83 20 118/44 (68) 90 Nasal Cannula 1.0 Intake and Output 08/18/18 07:00 Intake Total 1676 ml Output Total 425 ml Balance 1251 ml Tube Feeding 991 ml Tube Irrigant 685 ml Output Urine Total 425 ml Drainage Total 0 ml # Bowel Movements 3 General Appearance: Alert, Awake, No Acute Distress, Afebrile Cardiovascular: Normal Rhythm & Peripheral Pulses Respiratory: Other (coarse breath sounds, wet, improves with cough) GI: Soft and Non-Tender Extremities: Soft and Non Tender, Warm, Pulses, Perfused Result Diagram: 08/18/1851108/18/18511 Assessment and Plan Problems: (1) Aspiration pneumonia Status: Acute Assessment & Plan: She did have an aspiration event prior to admission and appears to have aspirated again when she had a high residual with her tube feedings. She did have feeding tube placed with Dr. Almazan. Afebrile. Normal WBC. She has completed a full course of Unasyn. (2) Malnutrition Status: Chronic Assessment & Plan: Secondary to poor intake. Very weak and not able to go home. She is now on TF diet during the night, but having high residuals. Will transition to tube feedings 24hrs a day so we can reduce rate and she will have better toleration of the feedings. She has significant edema likely due to low albumin. A prealbumin has been ordered to establish a baseline. (3) Anemia Status: Acute Assessment & Plan: Most likely due to some blood loss from PEG tube placement vs. PUD/gastritis. Some dark liquid seen on a residual check. Heme positive stool and Hgb/Hct dropped. We have stopped Lovenox and started Protonix. BP/P stable. Hgb/Hct now stable. Monitor closely. (4) Hypernatremia Status: Acute Assessment & Plan: Improving with addition of free water to TF. Will follow. (5) Acute respiratory failure with hypoxia Status: Acute Assessment & Plan: Secondary to aspiration and apparent pneumonia. She had improved clinically, but had another aspiration on 08/13/18. Her echocardiogram shows normal LV function with some mild mitral and aortic regurge with moderate tricuspid regurge. (6) LALA (acute kidney injury) Assessment & Plan: Improved with IV fluids. (7) Dehydration Status: Acute Assessment & Plan: Improved with tube feeding/free water. (8) Hypothyroidism Status: Chronic Assessment & Plan: She is on chronic treatment with Synthroid. TSH was WNL. (9) Hyponatremia Status: Resolved Assessment & Plan: Resolved with IV fluids and she had actually become hypernatremic. We have modified her free fluids with her TF. Will monitor closely. (10) Urinary retention Status: Acute Assessment & Plan: A José catheter was placed. Unable to void after removal of José, will discuss with urology. (11) Constipation Status: Chronic Assessment & Plan: She was disimpacted in the ER. Will see how she responds to tube feedings. Miralax started. Having BMs. (12) Superficial burn Assessment & Plan: Previously documented as pressure wounds, wound care is seeing. Appear to be healing well. Exam Sepsis Risk: No Definite Risk Problem Qualifiers (1) Aspiration pneumonia: Aspiration pneumonia type: unspecified Laterality: unspecified laterality Lung location: unspecified part of lung Qualified Codes: J69.0 - Pneumonitis due to inhalation of food and vomit (2) Malnutrition: Malnutrition type: protein-calorie malnutrition (3) Anemia: Anemia type: unspecified type Qualified Codes: D64.9 - Anemia, unspecified FIONA PARKER DO Aug 18, 2018 11:52
--- NOTE | 2018-08-18 14:32 | CONSULTATION ---
EVENT DATE: August 18, 2018 HISTORY OF PRESENT ILLNESS This is an 88-year old white female whom I was asked to see by the hospitalist for inability to urinate satisfactorily and found to be in urinary retention on admission, August 03, 2018. Urologically, patient has had no significant issues historically. Currently, she feels like she has not been draining her bladder satisfactorily for a month or two. She has nocturia x1. Flow is normally steady. She states she does not dribble whenever she urinates. There is no dysuria or hematuria. She voids approximately every two hours. No urinary incontinence and always has urgency. No history of problems with urinary tract infections or tract procedures. Currently, the patient was given a trial of voiding and was unable to urinate satisfactory and had her José replaced and had approximately 400 cc indwelling. As patient is recovering from her medical problems and gaining strength fairly slowly, I recommend indwelling catheter until she recovers more satisfactorily from her medical procedures and is mobilized and regains her strength. Patient will need routine catheter care to keep the catheter off tension and treat spasms as indicated. When trial voiding is done, we will collect a urine sample for culture and sensitivity. The current plans for the patient is to transfer to the [facility] for further care. Patient may need to be consulted urologically if she is unable to urinate satisfactorily and have further tract studies such as cystoscopy and cystometry. Thank you for letting me share in the care of your patient. I will follow along as long as she is here. ELIZABETH
[2018-08-18] MEDS ORDERED: FLUCONAZOLE 150 MG TAB FT ONE (15:30)
[2018-08-18] MEDS ORDERED: FLUCONAZOLE 100 MG TAB FT ONE (15:30)
[2018-08-18 16:00] VITALS: BP 118/58
[2018-08-18 19:36] VITALS: BP 121/51
[2018-08-19 04:14] VITALS: BP 122/50
[2018-08-19] MEDS: ALBUTEROL/IPRATROPIUM 3 ML NEB NEB SCH ×2 (05:23→09:22)
[2018-08-19] MEDS: LEVOTHYROXINE SOD 0.137 MG TAB FT SCH (06:21)
[2018-08-19 06:59] VITALS: BP 120/51
[2018-08-19] MEDS ORDERED: BISACODYL 5 MG TABEC PO SCH (09:00)
--- NOTE | 2018-08-19 09:12 | NUR ---
OCCUPATIONAL THERAPY Dressing Assistance: Total assistance Dressing Aid Required: None Bathing Assistance: N/T with OT Home Assessment: Not Completed Feeding Assistance: Total A tube feeding Toilet Use: Total A Verbalizes Needs: Yes Understands Precautions: Yes Cooperative: Yes Family Teaching: No Occupational Therapy Comment: Pt benefits from use of communication board to conserve energy and express needs.
[2018-08-19] MEDS ORDERED: PANT40SU3 FT (09:17)
[2018-08-19] MEDS ORDERED: Bisacodyl PR (09:17)
[2018-08-19] MEDS ORDERED: NYST15PO12 TP (09:17)
[2018-08-19] MEDS ORDERED: LEVO137T23 FT (09:17)
[2018-08-19] MEDS ORDERED: POLY17PO11 PO (09:17)
[2018-08-19] MEDS: POLYETHYLENE GLYCOL 17 GM PKT PO SCH (09:20)
[2018-08-19] MEDS: PANTOPRAZOLE SODIUM 40 MG FT SCH (09:21)
[2018-08-19] MEDS: NYSTATIN 100,000 U/GM PWD 15GM TP SCH (09:21)
--- NOTE | 2018-08-19 09:21 | Hospitalist Depart ---
Discharge Summary Reason for Hosp/Final Diag: (1) Aspiration pneumonia Status: Acute Hospital Course & Plan: She did have an aspiration event prior to admission and appears to have aspirated again when she had a high residual with her tube feedings. She did have feeding tube placed with Dr. Almazan. Afebrile. Normal WBC. She has completed a full course of Unasyn. She will transfer to [facility] in [place] for continued care. (2) Malnutrition Status: Chronic Hospital Course & Plan: Secondary to poor intake. Very weak and not able to go home. She is now on TF diet during the night, but having high residuals. Tube feedings were transitioned to 24hrs a day so we can reduce rate and she will have better toleration of the feedings. She has significant edema likely due to low albumin. A prealbumin has been ordered to establish a baseline. (3) Anemia Status: Acute Hospital Course & Plan: Most likely due to some blood loss from PEG tube placement vs. PUD/gastritis. Some dark liquid seen on a residual check. Heme positive stool and Hgb/Hct dropped. We have stopped Lovenox and started Protonix. BP/P stable. Hgb/Hct now stable. (4) Hypernatremia Status: Acute Hospital Course & Plan: Improving with addition of free water to TF. (5) Acute respiratory failure with hypoxia Status: Acute Hospital Course & Plan: Secondary to aspiration and apparent pneumonia. She had improved clinically, but had another aspiration on 08/13/18. Her echocardiogram shows normal LV function with some mild mitral and aortic regurge with moderate tricuspid regurge. (6) LALA (acute kidney injury) Hospital Course & Plan: Improved with IV fluids. (7) Dehydration Status: Acute Hospital Course & Plan: Improved with tube feeding/free water. (8) Hypothyroidism Status: Chronic Hospital Course & Plan: She is on chronic treatment with Synthroid. TSH was WNL. (9) Hyponatremia Status: Resolved Hospital Course & Plan: Resolved with IV fluids and she had actually become hypernatremic. We have modified her free fluids with her TF. (10) Urinary retention Status: Acute Hospital Course & Plan: A Ojsé catheter was placed. Unable to void after removal of José, will discuss with urology. (11) Constipation Status: Chronic Hospital Course & Plan: She was disimpacted in the ER. Miralax started. Having BMs. (12) Superficial burn Hospital Course & Plan: Previously documented as pressure wounds, wound care is seeing. Appear to be healing well. Departure Latest Vital Signs Vital Signs 08/13/18 08/19/18 20:45 06:59 Temp 98.4 Pulse 84 Resp 20 B/P (MAP) 120/51 (74) Pulse Ox 95 O2 Delivery High-Flow Nasal Cannula O2 Flow Rate 3.0 FiO2 100.0 Weight (Pounds): 138 Weight (Ounces): 8.0 Result Diagram: 08/18/1851108/18/18511 Condition: Improved Discharge: Care Home PT/OT Follow Up For: PT For Strengthening, OT For ADL's, PT Evaluation and Treat, ST Evaluation and Treat, OT Evaluation and Treat Discharge Instructions Home Meds Active Scripts [Bisacodyl(*) 10 Mg Supp] 10 MG SUPP No Conflict Check, 10 MG WI QDAY PRN for CONSTIPATION, #10 SUPP INSERT Prov:JOSEPHINE ALLENACE Cr [facility] 08/19/18 Nystatin (NYAMYC) 15 Gm Powder, 1 [place] TP BID, #60 GM Prov:LOUIS ALLEN Cr [facility] 08/19/18 Polyethylene Glycol 3350 (POLYETHYLENE GLYCOL 3350) 17 Gm Powd.pack, 17 GM PO BID, #60 PACK Prov:ALLENLOUIS Cr [facility] 08/19/18 Pantoprazole Sodium (PROTONIX) 40 Mg Granpkt.dr, 40 MG FT DAILY, #30 TAB Prov:LOUIS ALLEN [facility] 08/19/18 Levothyroxine Sodium (LEVOTHYROXINE SODIUM) 137 Mcg Tablet, 137 MCG FT QDAY, #30 TAB Prov:ALLENJOSEPHINELOUIS M [facility] 08/19/18 Discontinued Reported Medications Hydrochlorothiazide (HYDROCHLOROTHIAZIDE) 12.5 Mg Tablet, 12.5 MG PO QDAY, TAB 08/09/18 Copies to: BOOKER ZAMAN MD ; Venous Thromboembolism Antithrombotics Is Pt On Any Antithrombotics?: Yes Problem Qualifiers (1) Aspiration pneumonia: Aspiration pneumonia type: unspecified Laterality: unspecified laterality Lung location: unspecified part of lung Qualified Codes: J69.0 - Pneumonitis due to inhalation of food and vomit (2) Malnutrition: Malnutrition type: protein-calorie malnutrition (3) Anemia: Anemia type: unspecified type Qualified Codes: D64.9 - Anemia, unspecified LOUIS ALLEN [facility] Aug 19, 2018 09:21
--- NOTE | 2018-08-19 11:28 | Medical Nutrition Therapy ---
Nutrition Anthropometrics Height (Inches): 64.00 Height (Calculated Centimeters: 162.627369 Weight (Pounds): 138 (Wt up from last assess.) Weight (Calculated Kilograms): 62.596 BMI: 21.1 Jae Nutrition Score: Probably Inadequate Jae Nutrition Risk Score: 13 Dietary Referral Nutrition Risk Factors: Diff. Swallowing Nutrition Risk Comment: Tongue removed R/T CA, drinks boost for nutrition--poor swallowing. Physical Findings Physical Appearance: Underweight for adult>70 yrs, better to have BMI in 25-32 range for older adults Skin Appearance Skin Appearance: Sacrum Ulcer Stage II Edema Edema Location Modifier: Right Edema Location: Upper Extremity Type of Edema: Degree of Edema: 1+ Gastrointestinal Symptoms GI Symtoms: Appetite Changes, Constipation Tube Present: PEG, Feeding Bowel Sounds: Recent Bowel Pattern: Constipated Stool Characteristics: Brown, Soft Nutritional Diagnosis Nutritional Risk Acuity 1: No Appetite, Tube Feed Unstable Nutritional Risk Acuity 4: %IBW 90-100% Past Medical History: tongue cancer, tongue resection, breast cancer, hypothyroidism Nutritional Acuity: 1-High Nutrition Diagnosis: Inadequate Food Intake, Increased Nutrient Needs Nutrition Etiology: Psychological Issues, Physiological Causes, Mechanical/Motor Issues Nutrition Problem/Etiology/Sym: two pressure ulcers Energy Requirement: 1803 (MSJ AF1.5 Using UBW of 51 kg) Protein Requirement: 61 (1.4g/kg UBW of 51 kg) Fluid Requirement: 1530 (30-35mL/kg 4435-8923) Diet Type: Tube Feeding (TF) Nutrition Intervention: Cont diet as ordered, Nutrition support, Incr diet as tolerated Nutritional Support Tube Feeding Formulas: Jevity 1cal/ml-Standard Current Tube Feeding Formula C: 60 mL/hr x 24 hrs Tube Feeding Supplement Streng: Full Feeding Route: PEG Current Duration: 24 Current Calories: 1526 Current Protein: 64 Current Lipids Calories: 106 Total Current Calories: 1526 Free H2O bolus for hydration (: 200 ML x 4/24 HRS Recommended Enteral / Parental: Tube Feeding Recommended Tube Feeding Formu: Jevity 1cal/ml-Standard, Osmolite 1cal/ml- Isotonic Recommended Tube Feeding Formu: Could consider switching to Jevity 1.5 or Osmolite 1.5 Tube Feeding Supplement Streng: Full Recommended Feeding Route: PEG Recommended Rate: 71mL/hr x 24 hrs Recommended Goal Rate: 71 mL/hr x 24 hrs Recommended Duration: 24 Recommended Calories: 1806 Recommended Protein: 75 Recommended Lipids Calories: 59 Total Recommended Calories: 1806 Nutrition Monitoring & Eval RD Patient Assessment Time: [address] Assessment Type: RD Re-Assessment Patient Nutrition Acuity: 1-High Follow Up Date: Aug 19, 2018 Nutritional Comment: 08/19/18 Pt tolerating Jevity 1.0 x 24 hrs at rate of 60mL/hr with additional 800 mL free water. Pt has been tolerating continous tube feed well. Recent gastric residuals have been minimal. Does have a hx of constipation and this was the rationale for Jevity. Would recommend increase rate slowly to better meet needs. Current rate provides 1,526 kcal, 64 g Protein, 223 g CHO, and 21 g Fiber, 1202 mL water (from formula) + 800 free water. Recommend increase tube feed to 71mL/hr x 24 hours to meet estimated energy needs as evidenced by dx of malnutrition and pressure ulcer. Recommended tube feeding would provide 1806 kcal, 75 g Protein, 264 g CHo, 59 g Lipid, and 1423 mL water from formula + 400-600 mL free water. NIKI RAMIREZ Aug 19, 2018 10:55
== END 2018-08-19 10:40 | DRG 177 ==
LOC: ER 16:25 → MED 19:15
PROVIDERS: ADMIT Internal Medicine; ATTEND Internal Medicine
PROC: 0DH68UZ Insertion of Feeding Device into Stomach, Via Natural or Artificial Opening Endoscopic (ICD-10-PCS; principal; 2018-08-03)
DX: J69.0 Pneumonitis due to inhalation of food and vomit (principal); J96.01 Acute respiratory failure with hypoxia; N17.9 Acute kidney failure, unspecified; E46 Unspecified protein-calorie malnutrition; E87.1 Hypo-osmolality and hyponatremia; E87.0 Hyperosmolality and hypernatremia; E86.0 Dehydration; K59.09 Other constipation; E89.0 Postprocedural hypothyroidism; K21.9 Gastro-esophageal reflux disease without esophagitis; F32.9 Major depressive disorder, single episode, unspecified; L89.322 Pressure ulcer of left buttock, stage 2; L89.102 Pressure ulcer of unspecified part of back, stage 2; E87.8 Other disorders of electrolyte and fluid balance, not elsewhere classified; R33.9 Retention of urine, unspecified; R79.89 Other specified abnormal findings of blood chemistry; L89.891 Pressure ulcer of other site, stage 1; R91.8 Other nonspecific abnormal finding of lung field; I08.3 Combined rheumatic disorders of mitral, aortic and tricuspid valves; D64.9 Anemia, unspecified; Z90.89 Acquired absence of other organs; Z88.5 Allergy status to narcotic agent; Z85.3 Personal history of malignant neoplasm of breast; Z90.12 Acquired absence of left breast and nipple; Z85.810 Personal history of malignant neoplasm of tongue; Z68.23 Body mass index [BMI] 23.0-23.9, adult
CPT/HCPCS: 36415; 71045; 74018; 74176; 81001; 82040; 82247; 82274; 82310; 82374; 82435; 82565; 82947; 83735; 83880; 84075; 84132; 84134; 84155; 84295; 84450; 84460; 84520; 85014; 85018; 85025; 87040; 87077; 87088; 87186; 93005; 93306; 94640; 94660; 94667; 94668; 97161; 97163; 97166; A4338; A4353; C9113; J0131; J0295; J0696; J1650; J1940; J2001; J2405; J2704; J3010; J3480; J7030; J7040; J7050; J7120; J7613

== ENCOUNTER → 2018-08-03 | Outpatient (CLI) | payer MEDICARE ==
[2017-03-18 10:50] VITALS: BMI 19.2
[~2018-08-03] MED LIST changes: +HYDR12.561 PO; +LEVO137T23 PO
== END ==
LOC: AMB 15:49
PROVIDERS: ATTEND Nurse Practitioner
DX: R53.1 Weakness (principal); E86.0 Dehydration; R09.02 Hypoxemia
CPT/HCPCS: A0425; A0427

== ENCOUNTER → 2018-08-19 | Outpatient (CLI) | payer MEDICARE ==
[2017-03-18 10:50] VITALS: BMI 19.2
[~2018-08-19] MED LIST changes: +Bisacodyl PR; +HYDR12.561 PO; +LEVO137T23 FT; +LEVO137T23 PO; +NYST15PO12 TP; +PANT40SU3 FT
== END ==
LOC: AMB 10:21
PROVIDERS: ATTEND Nurse Practitioner
DX: R53.1 Weakness (principal)
CPT/HCPCS: A0425; A0428